=== PATIENT | male | born 1945 | race Caucasian/White ===

== ENCOUNTER 2020-02-08 14:17 | Emergency (ER) | payer MEDICARE, BC ==
[2020-02-08] MEDS ORDERED: Sodium Chloride 0.9% 10 ML Syringe FLUSH PRN (14:50)
--- NOTE | 2020-02-08 15:27 | CR ---
Chest: PA and lateral views of the chest were obtained. Comparison: Prior chest x-ray of 07/21/18. Slight increased density is felt to be present within both lung bases. If patient has infectious symptoms this could represent minimal areas of pneumonia, this otherwise represents atelectasis. Upper lungs are clear. Heart is enlarged. Tortuous thoracic aorta is noted. Scattered disc space narrowing throughout the thoracic spine with endplate spurring is seen. Diaphragms are flattened on the lateral view compatible with emphysematous change. Impression: 1. Mild increased density within both lung bases as described above. 2. Emphysematous change. 3. Mild cardiomegaly. Diagnostic code #3 This report was dictated in MDT
--- NOTE | 2020-02-08 15:36 | EDM.PDOC ---
ED HPI GENERAL MEDICAL PROBLEM - General Chief Complaint: Chest Pain Stated Complaint: CHEST PAIN Time Seen by Provider: 02/08/20 14:50 Source of Information: Reports: Patient History Limitations: Reports: No Limitations - History of Present Illness INITIAL COMMENTS - FREE TEXT/NARRATIVE: Patient is a 74-year-old male who presents with a 3-day history of chest pain. Patient describes the pain as midsternal that radiates to the right chest and left shoulder. He denies any increased shortness of breath associated with this pain. He denies any diaphoresis. He states the pain comes and goes and is worsened by lying flat. When he has an episode of pain he states it can last anywhere from 10 seconds to 45 seconds. It happens intermittently throughout the day. Pain is not currently present, however he does state he feels pressure. He denies any history of GERD, however states he was on omeprazole previously, however he is no longer on that medication. Patient has a past medical history significant for high blood pressure, coronary artery disease, COPD, type 2 diabetes, and blood clots. Chest Pain Score (Numeric/FACES): 7 - Related Data Allergies Allergy/AdvReac Type Severity Reaction Status Date / Time No Known Allergies Allergy Verified 02/08/20 14:32 Home Meds: Home Meds Acetaminophen 325 mg PO Q4H PRN 02/08/20 [History] Albuterol [Proventil HFA] 2 puff INH Q4H PRN 02/08/20 [History] Apixaban [Eliquis] 5 mg PO BID 02/08/20 [History] Budesonide/Formoterol Fumarate [Budesonide-Formoterol 160-4.5] 2 puff INH BID [History] Flunisolide [Nasalide Nasal [place]] 2 spr WYATT DAILY 02/08/20 [History] Folic Acid 1 mg PO DAILY 02/08/20 [History] Furosemide [Lasix] 80 mg PO DAILY 02/08/20 [History] Insulin Glarg,Human.Rec.Analog [Lantus Solostar] 40 units SUBCUT BEDTIME [History] Isosorbide Mononitrate [Isosorbide Mononitrate ER] 60 mg PO DAILY 02/08/20 [ History] Losartan [Cozaar] 100 mg PO DAILY 02/08/20 [History] Montelukast [Singulair] 10 mg PO BEDTIME 02/08/20 [History] Nitroglycerin 0.4 mg SL ASDIRECTED PRN 02/08/20 [History] Omeprazole 20 mg PO DAILY #30 capsule. 02/08/20 [Rx] Simvastatin [Zocor] 40 mg PO BEDTIME 02/08/20 [History] SitaGLIPtin [Januvia] 100 mg PO DAILY 02/08/20 [History] amLODIPine [Norvasc] 10 mg PO DAILY 02/08/20 [History] carvediloL [Carvedilol] 25 mg PO BID 02/08/20 [History] metFORMIN [Glucophage] 1,000 mg PO BID 02/08/20 [History] traZODone HCl [Trazodone HCl] 50 mg PO BEDTIME 02/08/20 [History] Past Medical History HEENT History: Reports: Impaired Vision Social & Family History - Tobacco Use Smoking Status *Q: Never Smoker ED ROS GENERAL - Review of Systems Review Of Systems: Comprehensive ROS is negative, except as noted in HPI. ED EXAM, GENERAL - Physical Exam Exam: See Below Exam Limited By: No Limitations General Appearance: Alert, WD/WN, No Apparent Distress Respiratory/Chest: No Respiratory Distress, Lungs Clear, Normal Breath Sounds, No Accessory Muscle Use, Chest Non-Tender Cardiovascular: Normal Peripheral Pulses, Regular Rate, Rhythm, No Edema, No Gallop, No JVD, No Murmur, No Rub GI/Abdominal: Normal Bowel Sounds, Soft, No Organomegaly, No Distention, No Abnormal Bruit, No Mass, Pelvis Stable, Other (epigastric tenderness) Extremities: Normal Inspection, Normal Range of Motion, Non-Tender, Normal Capillary Refill, No Pedal Edema Neurological: Alert, Oriented, CN II-XII Intact, Normal Cognition, Normal Gait, Normal Reflexes, No Motor/Sensory Deficits Psychiatric: Normal Affect, Normal Mood Skin Exam: Warm, Dry, Intact, Normal Color, No Rash Course - Vital Signs Last Recorded V/S: Last Vital Signs Temp 97.9 F 02/08/20 14:30 Pulse 68 02/08/20 17:00 Resp 16 02/08/20 17:00 BP 152/86 H 02/08/20 17:00 Pulse Ox 97 02/08/20 17:00 - Orders/Labs/Meds Orders: Active Orders 24 hr Category Date Time Status EKG Documentation Completion [RC] STAT Care 02/08/20 14:51 Active Peripheral IV Care [RC] . DIRECTED Care 02/08/20 14:51 Active Peripheral IV Insertion Adult [OM.PC] Stat Oth 02/08/20 14:50 Ordered Labs: Laboratory Tests 02/08/20 02/08/20 02/08/20 Range/Units 15:10 15:10 15:10 WBC 10.60 H (4.23-9.07) K/mm3 RBC 4.73 (4.63-6.08) M/mm3 Hgb 14.9 (13.7-17.5) gm/dl Hct 45.3 (40.1-51.0) % MCV 95.8 H (79.0-92.2) fl MCH 31.5 (25.7-32.2) pg MCHC 32.9 (32.2-35.5) g/dl RDW Std Deviation 47.4 H (35.1-43.9) fL Plt Count 165 (163-337) K/mm3 MPV 11.4 (9.4-12.3) fl Neut % (Auto) 65.7 (34.0-67.9) % Lymph % (Auto) 16.5 L (21.8-53.1) % [place] % (Auto) 11.0 (5.3-12.2) % Eos % (Auto) 5.8 (0.8-7.0) Baso % (Auto) 0.4 (0.1-1.2) % Neut # (Auto) 6.96 H (1.78-5.38) K/mm3 Lymph # (Auto) 1.75 (1.32-3.57) K/mm3 [place] # (Auto) 1.17 H (0.30-0.82) K/mm3 Eos # (Auto) 0.62 H (0.04-0.54) K/mm3 Baso # (Auto) 0.04 (0.01-0.08) K/mm3 Manual Slide Review Abnormal smear D-Dimer, Quantitative 0.24 (0.19-0.50) mg/L Sodium 142 (136-145) mEq/L Potassium 4.1 (3.5-5.1) mEq/L Chloride 106 (98-107) mEq/L Carbon Dioxide 24 (21-32) mEq/L Anion Gap 16.1 H (5-15) BUN 23 H (7-18) mg/dL Creatinine 1.3 (0.7-1.3) mg/dL Est Cr Clr Drug Dosing 52.29 mL/min Estimated GFR (MDRD) 54 (>60) mL/min BUN/Creatinine Ratio 17.7 (14-18) Glucose 169 H (83-115) mg/dL Calcium 9.7 (8.5-10.1) mg/dL Total Bilirubin 0.6 (0.2-1.0) mg/dL AST 34 (15-37) U/L ALT 46 (16-63) U/L Alkaline Phosphatase 101 (46-116) U/L Troponin I 0.048 (0.00-0.056) ng/mL Total Protein 7.8 (6.4-8.2) g/dl Albumin 3.1 L (3.4-5.0) g/dl Globulin 4.7 gm/dL Albumin/Globulin Ratio 0.7 L (1-2) Lipase (73-393) U/L 02/08/20 Range/Units 15:10 WBC (4.23-9.07) K/mm3 RBC (4.63-6.08) M/mm3 Hgb (13.7-17.5) gm/dl Hct (40.1-51.0) % MCV (79.0-92.2) fl MCH (25.7-32.2) pg MCHC (32.2-35.5) g/dl RDW Std Deviation (35.1-43.9) fL Plt Count (163-337) K/mm3 MPV (9.4-12.3) fl Neut % (Auto) (34.0-67.9) % Lymph % (Auto) (21.8-53.1) % [place] % (Auto) (5.3-12.2) % Eos % (Auto) (0.8-7.0) Baso % (Auto) (0.1-1.2) % Neut # (Auto) (1.78-5.38) K/mm3 Lymph # (Auto) (1.32-3.57) K/mm3 [place] # (Auto) (0.30-0.82) K/mm3 Eos # (Auto) (0.04-0.54) K/mm3 Baso # (Auto) (0.01-0.08) K/mm3 Manual Slide Review D-Dimer, Quantitative (0.19-0.50) mg/L Sodium (136-145) mEq/L Potassium (3.5-5.1) mEq/L Chloride (98-107) mEq/L Carbon Dioxide (21-32) mEq/L Anion Gap (5-15) BUN (7-18) mg/dL Creatinine (0.7-1.3) mg/dL Est Cr Clr Drug Dosing mL/min Estimated GFR (MDRD) (>60) mL/min BUN/Creatinine Ratio (14-18) Glucose (83-115) mg/dL Calcium (8.5-10.1) mg/dL Total Bilirubin (0.2-1.0) mg/dL AST (15-37) U/L ALT (16-63) U/L Alkaline Phosphatase (46-116) U/L Troponin I (0.00-0.056) ng/mL Total Protein (6.4-8.2) g/dl Albumin (3.4-5.0) g/dl Globulin gm/dL Albumin/Globulin Ratio (1-2) Lipase 78 (73-393) U/L Meds: Medications Discontinued Medications Generic Name Dose Route Start Last Admin Trade Name Freq PRN Reason Stop Dose Admin Al Hydroxide/Mg Hydroxide 30 0 ml 02/08/20 16:05 02/08/20 16:23 ml/ Lidocaine HCl 15 ml PO 02/08/20 16:06 45 ml ONETIME ONE Administration Sodium Chloride 10 ml 02/08/20 14:50 02/08/20 15:14 Saline Flush FLUSH 10 ml ASDIRECTED PRN Administration Keep Vein Open - Re-Assessments/Exams Free Text/Narrative Re-Assessment/Exam: On exam, patient does have fairly significant epigastric discomfort to palpation. Based on his symptoms and exam, I feel it is likely he is suffering from gastritis with esophageal spasms, however I have ordered a CBC, CMP, troponin, d-dimer, chest x-ray, and EKG to rule out cardiac involvement. If this all comes back normal, we will try using a GI cocktail to see if that improves his symptoms. 02/08/20 16:20 Hematology was significant for a WBC slightly elevated at 10.6, BUN 23, anion gap 16.1. Troponin and d-dimer were found to be negative. EKG was negative for any acute ischemia. Chest x-ray showed atelectasis in the bilateral lung bases as well as emphysematous changes. Patient states that he had a couple episodes of the sharp pains while waiting for results. He continues to have a pressure in the lower mid chest area directly above the epigastrium. We will order a GI cocktail at this time to see if this improves patient's symptoms. 02/08/20 16:58 On re-exam, patient verbalized that his symptoms resolved after the GI cocktail. The pressure above his epigastrium has resolved and he has had no further episodes of sharp pains. I will recommend that he start omeprazole once daily and follow-up with his primary care provider next week. I will send a prescription for omeprazole to her [facility] pharmacy. Discharge instructions as documented. Departure - Departure Time of Disposition: 16:59 Disposition: Home, Self-Care 01 Condition: Good Clinical Impression: Atypical chest pain Prescriptions: Omeprazole 20 mg PO DAILY #30 capsule. Instructions: Nonspecific Chest Pain, Adult, [id number] Referrals: Radha Copeland, AIRPLANE P[employer]OT SUPERVISOR [Primary Care Provider] - Forms: ED Department Discharge Additional Instructions: You were seen in the emergency department today for a 3-day history of intermittent chest discomfort. He work-up included blood work, EKG, and a chest x-ray. Your work-up was found to be overall normal. While in the ER, you did receive a GI cocktail which you state did resolve your symptoms. Based on your exam, work-up findings, and improvement with a GI cocktail, it is likely that you are suffering from a gastritis with esophageal spasms. I would recommend that you start taking omeprazole 20 mg daily. A prescription for this has been sent to [facility] pharmacy. I would also recommend that you follow- up with your primary care provider next week to monitor the symptoms. If you experience any new or worsening symptoms of concern, please do not hesitate to return to the emergency department. Sepsis Event Note - Evaluation Sepsis Screening Result: No Definite Risk - Focused Exam Vital Signs: Vital Signs Temp Pulse Resp BP Pulse Ox 02/08/20 17:00 68 16 152/86 H 97 04/27/20 14:30 97.9 F 69 16 161/98 H 96 Date Exam was Performed: 02/08/20 Time Exam was Performed: 20:37 - My Orders Last 24 Hours: My Active Orders 02/08/20 14:50 Peripheral IV Insertion Adult [OM.PC] Stat 02/08/20 14:51 EKG Documentation Completion [RC] STAT Peripheral IV Care [RC] . DIRECTED - Assessment/Plan Last 24 Hours: My Active Orders 02/08/20 14:50 Peripheral IV Insertion Adult [OM.PC] Stat 02/08/20 14:51 EKG Documentation Completion [RC] STAT Peripheral IV Care [RC] . DIRECTED
[2020-02-08] MEDS ORDERED: Alum Hydrox/Mag Hydrox/Simeth 30 ML, Lidocaine 2% 15 ML PO ONE ×2 (16:05)
[2020-02-08 17:27] VITALS: BP 152/86; PULSE 68
== END 2020-02-08 17:15 | disposition home or self-care (01) ==
LOC: JD.ED 14:17
DX: R07.89 Other chest pain (principal); Z79.01 Long term (current) use of anticoagulants; Z79.899 Other long term (current) drug therapy
CPT/HCPCS: 36415; 71046; 80053; 83690; 84484; 85025; 85379; 93005; 99285; A9270

== ENCOUNTER 2020-05-25 17:16 | Emergency (ER) | payer OTHER, MEDICARE, BC ==
[2020-05-25 17:52] VITALS: BP 160/81; PULSE 59
--- NOTE | 2020-05-25 19:29 | EDM.PDOC ---
ED HPI GENERAL MEDICAL PROBLEM - General Chief Complaint: Lower Extremity Injury/Pain Stated Complaint: RT ANKLE INJURY Time Seen by Provider: 05/25/20 18:19 Source of Information: Reports: Patient, RN Notes Reviewed - History of Present Illness INITIAL COMMENTS - FREE TEXT/NARRATIVE: 74 yr old male fell, twisted and injured R ankle 5 days ago. Continued pain, swelling and now a lot of bruising. Takes elequis. He has had pain with wt bearing. Has been using crutches. No other pain or injury. Right Ankle Pain Score (Numeric/FACES): 10 - Related Data Allergies Allergy/AdvReac Type Severity Reaction Status Date / Time No Known Allergies Allergy Verified 05/25/20 17:50 Home Meds: Home Meds Acetaminophen 325 mg PO Q4H PRN 02/08/20 [History] Albuterol [Proventil HFA] 2 puff INH Q4H PRN 02/08/20 [History] Apixaban [Eliquis] 5 mg PO BID 02/08/20 [History] Budesonide/Formoterol Fumarate [Budesonide-Formoterol 160-4.5] 2 puff INH BID 02/08/20 [History] Flunisolide [Nasalide Nasal [place]] 2 spr WYATT DAILY 02/08/20 [History] Folic Acid 1 mg PO DAILY 02/08/20 [History] Furosemide [Lasix] 80 mg PO DAILY 02/08/20 [History] Insulin Glarg,Human.Rec.Analog [Lantus Solostar] 40 units SUBCUT BEDTIME 02/08/20 [History] Isosorbide Mononitrate [Isosorbide Mononitrate ER] 60 mg PO DAILY 02/08/20 [H istory] Losartan [Cozaar] 100 mg PO DAILY 02/08/20 [History] Montelukast [Singulair] 10 mg PO BEDTIME 02/08/20 [History] Nitroglycerin 0.4 mg SL ASDIRECTED PRN 02/08/20 [History] Omeprazole 20 mg PO DAILY #30 capsule. 02/08/20 [Rx] Simvastatin [Zocor] 40 mg PO BEDTIME 02/08/20 [History] SitaGLIPtin [Januvia] 100 mg PO DAILY 02/08/20 [History] amLODIPine [Norvasc] 10 mg PO DAILY 02/08/20 [History] carvediloL [Carvedilol] 25 mg PO BID 02/08/20 [History] metFORMIN [Glucophage] 1,000 mg PO BID 02/08/20 [History] traZODone HCl [Trazodone HCl] 50 mg PO BEDTIME 02/08/20 [History] Acetaminophen/HYDROcodone [[place] 325-5 MG] 1 tab PO Q6H PRN #14 tablet 05/25/20 [Rx] Past Medical History HEENT History: Reports: Impaired Vision Cardiovascular History: Reports: Blood Clots/VTE/DVT, High Cholesterol, Hypertension Respiratory History: Reports: PE Gastrointestinal History: Reports: None Genitourinary History: Reports: None Musculoskeletal History: Reports: Arthritis Neurological History: Reports: None Psychiatric History: Reports: None Endocrine/Metabolic History: Reports: Diabetes, Type II, Obesity/BMI 30+ Hematologic History: Reports: Anticoagulation Therapy Immunologic History: Reports: None Oncologic (Cancer) History: Reports: None Dermatologic History: Reports: None - Infectious Disease History Infectious Disease History: Reports: None - Past Surgical History HEENT Surgical History: Reports: Other (See Below) Other HEENT Surgeries/Procedures: Surgery to the nose. Cardiovascular Surgical History: Reports: Other (See Below) Other Cardiovascular Surgeries/Procedures: 3 Stents Musculoskeletal Surgical History: Reports: Other (See Below) Other Musculoskeletal Surgeries/Procedures:: Toe Surgery Social & Family History - Tobacco Use Smoking Status *Q: Never Smoker - Caffeine Use Caffeine Use: Reports: Coffee, Soda - Recreational Drug Use Recreational Drug Use: No Review of Systems - Review of Systems Review Of Systems: See Below Constitutional: Denies: Chills, Diaphoresis, Fever Eyes: Reports: No Symptoms Mouth/Throat: Reports: No Symptoms Respiratory: Denies: Shortness of Breath, Wheezing, Pleuritic Chest Pain Cardiovascular: Denies: Chest Pain GI/Abdominal: Denies: Abdominal Pain, Vomiting Musculoskeletal: Reports: Joint Pain (R ankle) Skin: Reports: Bruising (severe bruising and echymosis R lower leg, foot and ankle) ED EXAM, GENERAL - Physical Exam Exam: See Below General Appearance: Alert, No Apparent Distress Head: Atraumatic. No: Facial Swelling Neck: Supple Respiratory/Chest: No Respiratory Distress, Lungs Clear, Normal Breath Sounds. No: Rhonchi, Wheezing Cardiovascular: Regular Rate, Rhythm GI/Abdominal: Soft, Non-Tender Extremities: Pedal Edema (there is swelling, diffuse echymosis R lower leg, R ankle and R foot), Joint Swelling (R ankle, tenderness R lateral ankle), Other Neurological: Alert, Oriented, No Motor/Sensory Deficits Skin Exam: Warm, Dry, Ecchymosis (as described RLE) Course - Vital Signs Last Recorded V/S: Last Vital Signs Temp 97.6 F 05/25/20 17:47 Pulse 59 L 05/25/20 17:47 Resp 16 05/25/20 17:47 BP 160/81 H 05/25/20 17:47 Pulse Ox 96 05/25/20 17:47 - Re-Assessments/Exams Free Text/Narrative Re-Assessment/Exam: 05/28/20 14:32 X rays show what looks like nondisplaced fx distal fibula. Have place Orthoglass splint. discharge instr. as documented. Departure - Departure Time of Disposition: 19:25 Disposition: Home, Self-Care 01 Condition: Fair Clinical Impression: Fall Qualifiers: Encounter type: sequela Qualified Code(s): W19.XXXS - Unspecified fall, sequela Fractured fibula Qualifiers: Encounter type: initial encounter Fibula location: lateral malleolus Fracture type: closed - Discharge Information Prescriptions: Acetaminophen/HYDROcodone [[place] 325-5 MG] 1 tab PO Q6H PRN #14 tablet PRN Reason: Pain Instructions: Nondisplaced Fibular Ankle Fracture Treated With Immobilization, Adult, Cast or Splint Care, Adult Referrals: Radha Copeland DENTURE FINISHER [Primary Care Provider] - Forms: ED Department Discharge Additional Instructions: Fiberglass splint. Keep splint dry. Continue with intermitent ice packs and do try elevate foot and ankle as much as possible to help get the swelling down. Tylenol 2 to 3 times daily for mild to moderate pain or hydrocodone 1/2 tablet q 6 to 8 hr if needed for severe pain. Prescription has been sent to [facility] at the [employer] grocery store. Do not drive when taking hydrocodone. See Dr Powers or Brittani at his office this Saturday or early next week. Call [phone] in AM for appointment. Continue to use crutches. Try keep non weight bearing as best you can. Sepsis Event Note (ED) - Evaluation Sepsis Screening Result: No Definite Risk
--- NOTE | 2020-05-25 19:45 | CR ---
Right tibia and fibula: AP and lateral views of the right tibia and fibula were obtained. Calcification is seen within the medial upper calf most likely representing phlebolith within a varicosity. Mild arterial calcification is seen. Plantar spur is noted off the calcaneus. Lazaro of bone is noted off the medial malleolus which is believed to represent old cortical avulsion injury. Osteopenia is present. No definite fracture or other abnormality is appreciated. Impression: 1. Findings as noted above. 2. Nothing acute is definitely appreciated on right tibia and fibula exam. Diagnostic code #2 This report was dictated in MDT
--- NOTE | 2020-05-26 14:18 | CR ---
Right ankle: 4 views of the right ankle were obtained. Comparison: Previous right tibia and fibula study of 05/25/20. Findings: Fracture believed to be present within the distal tip of the fibula which appears nondisplaced. Old fracture calcifications are seen along the medial malleolus. Plantar spur is noted. Vascular calcification is seen. Impression: 1. Nondisplaced distal fibular tip fracture is felt to be present. This appears to be fairly acute. This was likely present on prior tibia and fibula study but not seen as well on the prior study. 2. Old injury as noted above and other findings. Diagnostic code #3 This report was dictated in MDT
== END 2020-05-25 19:35 | disposition home or self-care (01) ==
LOC: JD.ED 17:16
DX: S82.64XA Nondisplaced fracture of lateral malleolus of right fibula, initial encounter for closed fracture (principal); S80.11XA Contusion of right lower leg, initial encounter; S90.31XA Contusion of right foot, initial encounter; I10 Essential (primary) hypertension; E78.00 Pure hypercholesterolemia, unspecified; E11.9 Type 2 diabetes mellitus without complications; E66.9 Obesity, unspecified; Z79.4 Long term (current) use of insulin; Z68.30 Body mass index [BMI] 30.0-30.9, adult; Z79.899 Other long term (current) drug therapy; X50.1XXA Overexertion from prolonged static or awkward postures, initial encounter
CPT/HCPCS: 29515; 73590-26-RT; 73590-RT; 73610-26-RT; 73610-RT; 99283; 99283-25

== ENCOUNTER 2021-07-04 15:19 | Inpatient (IN) | payer MEDICARE, BC ==
[2021-07-04] MEDS ORDERED: Morphine 2 MG/ML SYRINGE IVPUSH PRN (16:08)
[2021-07-04] MEDS ORDERED: Promethazine 12.5 MG in Sodium Chloride 0.9% 50 ML IV PRN (16:08)
[2021-07-04] MEDS ORDERED: Albuterol/Ipratropium 3.0-0.5 MG/3 ML Neb Soln NEB PRN (16:08)
[2021-07-04] MEDS ORDERED: Enoxaparin 40 MG/0.4 ML Syringe SUBCUT SCH (16:15)
[2021-07-04] MEDS ORDERED: hydrALAZINE 20 MG/ML SDV IVPUSH PRN (16:21)
[2021-07-04] MEDS ORDERED: REMDESIVIR 200 MG in Sodium Chloride 0.9% 250 ML IV ONE (16:30)
--- NOTE | 2021-07-04 16:35 | PCM.HP.2 ---
H&P History of Present Illness - General Date of Service: 07/04/21 Admit Problem/Dx: Admission Diagnosis/Problem Admission Diagnosis/Problem Hypoxia Source of Information: Patient - History of Present Illness Initial Comments - Free Text/Narative: Patient is a 75-year-old male with a past medical history of COPD, atrial fibrillation, diabetes type 2, CHF, and hypertension who was directly admitted to the hospital from her PCP office due to oxygen desaturation. Patient possibly had a positive Covid test on June 20, 2021. At that time patient had a worsening shortness of breath for which he visited his doctor. He was given prednisone 5 days. Patient normally is on 2 L at night. But over the past 1 weeks he has been having coughing with phlegm and more worsening shortness of breath. Patient visited's office today in office where she was found to have low oxygen desaturation. Chest x-ray was performed that showing bilateral pneumonia. Patient has been on Eliquis for atrial fibrillation. - Related Data Allergies/Adverse Reactions: Allergies Allergy/AdvReac Type Severity Reaction Status Date / Time No Known Allergies Allergy Verified 05/25/20 17:50 Home Medications: Home Meds Acetaminophen 325 mg PO Q4H PRN 02/08/20 [History] Albuterol [Proventil HFA] 2 puff INH Q4H PRN 02/08/20 [History] Apixaban [Eliquis] 5 mg PO BID 02/08/20 [History] Budesonide/Formoterol Fumarate [Budesonide-Formoterol 160-4.5] 2 puff INH BID 02/08/20 [History] Flunisolide [Nasalide Nasal [place]] 2 spr WYATT DAILY 02/08/20 [History] Folic Acid 1 mg PO DAILY 02/08/20 [History] Furosemide [Lasix] 80 mg PO DAILY 02/08/20 [History] Insulin Glarg,Human.Rec.Analog [Lantus Solostar] 40 units SUBCUT BEDTIME 02/08/20 [History] Isosorbide Mononitrate [Isosorbide Mononitrate ER] 60 mg PO DAILY 02/08/20 [History] Losartan [Cozaar] 100 mg PO DAILY 02/08/20 [History] Montelukast [Singulair] 10 mg PO BEDTIME 02/08/20 [History] Nitroglycerin 0.4 mg SL ASDIRECTED PRN 02/08/20 [History] Omeprazole 20 mg PO DAILY #30 capsule.dr 02/08/20 [Rx] Simvastatin [Zocor] 40 mg PO BEDTIME 02/08/20 [History] SitaGLIPtin [Januvia] 100 mg PO DAILY 02/08/20 [History] amLODIPine [Norvasc] 10 mg PO DAILY 02/08/20 [History] carvediloL [Carvedilol] 25 mg PO BID 02/08/20 [History] metFORMIN [Glucophage] 1,000 mg PO BID 02/08/20 [History] traZODone HCl [Trazodone HCl] 50 mg PO BEDTIME 02/08/20 [History] Acetaminophen/HYDROcodone [[place] 325-5 MG] 1 tab PO Q6H PRN #14 tablet 05/25/20 [Rx] Past Medical History HEENT History: Reports: Impaired Vision Cardiovascular History: Reports: Blood Clots/VTE/DVT, High Cholesterol, Hypertension Respiratory History: Reports: PE Gastrointestinal History: Reports: None Genitourinary History: Reports: None Musculoskeletal History: Reports: Arthritis Neurological History: Reports: None Psychiatric History: Reports: None Endocrine/Metabolic History: Reports: Diabetes, Type II, Obesity/BMI 30+ Hematologic History: Reports: Anticoagulation Therapy Immunologic History: Reports: None Oncologic (Cancer) History: Reports: None Dermatologic History: Reports: None - Infectious Disease History Infectious Disease History: Reports: None - Past Surgical History HEENT Surgical History: Reports: Other (See Below) Other HEENT Surgeries/Procedures: Surgery to the nose. Cardiovascular Surgical History: Reports: Other (See Below) Other Cardiovascular Surgeries/Procedures: 3 Stents Musculoskeletal Surgical History: Reports: Other (See Below) Other Musculoskeletal Surgeries/Procedures:: Toe Surgery Social & Family History - Family History Family Medical History: No Pertinent Family History (Denies genetic diseases in family) - Caffeine Use Caffeine Use: Reports: Coffee, Soda H&P Review of Systems - Review of Systems: Review Of Systems: See Below General: Reports: Weakness, Fatigue HEENT: Reports: No Symptoms Pulmonary: Reports: Shortness of Breath, Cough, Sputum Cardiovascular: Reports: No Symptoms Gastrointestinal: Reports: No Symptoms Genitourinary: Reports: No Symptoms Musculoskeletal: Reports: No Symptoms Skin: Reports: No Symptoms Psychiatric: Reports: No Symptoms Neurological: Reports: No Symptoms Hematologic/Lymphatic: Reports: No Symptoms Immunologic: Reports: No Symptoms Exam - Exam Exam: See Below - Vital Signs Vital Signs: Last Vital Signs Temp 36.8 C 07/04/21 16:21 Pulse 71 07/04/21 16:21 Resp 12 07/04/21 16:21 BP 113/60 07/04/21 16:21 Pulse Ox 90 L 07/04/21 16:21 - Exam General: Alert, Oriented, Cooperative, Mild Distress (Due to shortness of breath) HEENT: Conjunctiva Clear, EOMI, Pupils Equal, Pupils Reactive Neck: Supple, Full Range of Motion. No: Lymphadenopathy, JVD Lungs: Normal Respiratory Effort, Decreased Breath Sounds, Crackles, Rhonchi Cardiovascular: Irregular Rhythm GI/Abdominal Exam: Normal Bowel Sounds, Soft, Non-Tender, No Organomegaly Extremities: Normal Inspection, Non-Tender, No Pedal Edema Skin: Warm, Dry, Intact Neurological: Strength Equal Bilateral, Sensation Intact Neuro Extensive - Mental Status: Alert, Oriented x3, Normal Mood/Affect Sepsis Event Note - Evaluation Sepsis Screening Result: No Definite Risk - Focused Exam Vital Signs: Vital Signs Temp Pulse Resp BP Pulse Ox 07/04/21 16:21 36.8 C 71 12 113/60 90 L 07/04/21 16:08 72 90 L 07/04/21 16:02 75 89 L 07/04/21 15:19 70 88 L Problem List Initiated/Reviewed/Updated: Yes Orders Last 24hrs: Active Orders 24 hr Category Date Time Status Admission Status [Patient Status] [ADT] Routine ADT 07/04/21 15:38 Active Bedrest Bedside Commode [RC] ASDIRECTED Care 07/04/21 16:08 Ordered Cardiac Monitoring [RC] CONTINUOUS Care 07/04/21 16:09 Ordered EKG Documentation Completion [RC] ROUTINE Care 07/04/21 16:08 Ordered Intake and Output [RC] QSHIFT Care 07/04/21 16:09 Ordered Oxygen Therapy [RC] PRN Care 07/04/21 16:09 Ordered Pulse Oximetry [RC] CONTINUOUS Care 07/04/21 16:09 Ordered RT Aerosol Therapy [RC] ASDIRECTED Care 07/04/21 16:11 Ordered RT Post Treatment Assessment [RC] Click to Edit Care 07/04/21 16:27 Ordered RT Pre-Treatment Assessment [RC] Click to Edit Care 07/04/21 16:27 Ordered VTE/DVT Education [RC] PER UNIT ROUTINE Care 07/04/21 16:09 Ordered Vital Signs [RC] Q4H Care 07/04/21 16:09 Ordered Consistent Carbohydrate Diet [DIET] Diet 07/04/21 Dinner Ordered BLOOD CULTURE [MREF] Stat Lab 07/04/21 16:14 Ordered BLOOD CULTURE [MREF] Stat Lab 07/04/21 16:14 Ordered C-REACTIVE PROTEIN [CHEM] DAILY Lab 07/05/21 05:00 Ordered C-REACTIVE PROTEIN [CHEM] DAILY Lab 07/06/21 05:00 Ordered C-REACTIVE PROTEIN [CHEM] DAILY Lab 07/07/21 05:00 Ordered C-REACTIVE PROTEIN [CHEM] DAILY Lab 07/08/21 05:00 Ordered C-REACTIVE PROTEIN [CHEM] DAILY Lab 07/09/21 05:00 Ordered CBC WITH AUTO DIFF [HEME] DAILY Lab 07/05/21 05:00 Ordered CBC WITH AUTO DIFF [HEME] DAILY Lab 07/06/21 05:00 Ordered CBC WITH AUTO DIFF [HEME] DAILY Lab 07/07/21 05:00 Ordered CBC WITH AUTO DIFF [HEME] DAILY Lab 07/08/21 05:00 Ordered CBC WITH AUTO DIFF [HEME] DAILY Lab 07/09/21 05:00 Ordered COMPREHENSIVE METABOLIC PN,CMP [CHEM] DAILY Lab 07/05/21 05:00 Ordered COMPREHENSIVE METABOLIC PN,CMP [CHEM] DAILY Lab 07/06/21 05:00 Ordered COMPREHENSIVE METABOLIC PN,CMP [CHEM] DAILY Lab 07/07/21 05:00 Ordered COMPREHENSIVE METABOLIC PN,CMP [CHEM] DAILY Lab 07/08/21 05:00 Ordered COMPREHENSIVE METABOLIC PN,CMP [CHEM] DAILY Lab 07/09/21 05:00 Ordered D-DIMER QUANTITATIVE [COAG] Routine Lab 07/04/21 16:22 Ordered INR,PT,PROTHROMBIN TIME [COAG] Routine Lab 07/04/21 16:08 Ordered MAGNESIUM [CHEM] Routine Lab 07/04/21 16:08 Ordered PHOSPHORUS [CHEM] Routine Lab 07/04/21 16:08 Ordered PRO B-TYPE NATRIUR PEPT,BNPPRO [CHEM] Routine Lab 07/04/21 16:22 Ordered PTT,PARTIAL THROMBOPLSTIN TIME [COAG] Routine Lab 07/04/21 16:08 Ordered RESPIRATORY CULT [MREF] Stat Lab 07/04/21 16:08 Ordered TROPONIN I [CHEM] Routine Lab 07/04/21 16:08 Ordered UA W/MICROSCOPIC [URIN] Routine Lab 07/04/21 16:08 Ordered Acetaminophen [TylenoL] Med 07/04/21 16:08 Ordered 650 mg PO Q6H PRN Albuterol [Proventil HFA] Med 07/04/21 16:23 Ordered 2 puff INH Q4H PRN Albuterol/Ipratropium [DuoNeb 3.0-0.5 MG/3 ML] Med 07/04/21 16:08 Ordered 3 ml NEB Q4H PRN Apixaban [Eliquis] Med 07/04/21 16:30 Ordered 5 mg PO BID Azithromycin [Zithromax] Med 07/05/21 09:00 Ordered 500 mg PO DAILY Budesonide/Formoterol Fumarate Med 07/04/21 21:00 Ordered 2 puff INH BID Cholecalciferol (Vitamin D3) [Vitamin D3] Med 07/05/21 09:00 Ordered 25 mcg PO DAILY Enoxaparin [Lovenox] Med 07/04/21 16:15 Stop Req 40 mg SUBCUT DAILY Flunisolide [Nasalide Nasal [place]] Med 07/05/21 09:00 Ordered 2 spr WYATT DAILY Folic Acid Med 07/05/21 09:00 Ordered 1 mg PO DAILY Furosemide [Lasix] Med 07/05/21 09:00 Ordered 80 mg PO DAILY Insulin Glarg,Human.Rec.Analog Med 07/04/21 21:00 Ordered 40 units SUBCUT BEDTIME Insulin Lispro [HumaLOG] Med 07/04/21 17:00 Ordered See Protocol SUBCUT QIDACANDBED Isosorbide Mononitrate [Imdur] Med 07/05/21 09:00 Ordered 60 mg PO DAILY Melatonin Med 07/04/21 21:00 Ordered 3 mg PO BEDTIME Montelukast [Singulair] Med 07/04/21 21:00 Ordered 10 mg PO BEDTIME Morphine Med 07/04/21 16:08 Ordered 2 mg IVPUSH Q4H PRN Omeprazole Med 07/05/21 09:00 Ordered 20 mg PO DAILY Promethazine [Phenergan] 12.5 mg Med 07/04/21 16:08 Ordered Sodium Chloride 0.9% [Normal Saline] 50 ml IV Q6H Remdesivir 100 mg Med 07/04/21 16:30 Ordered Sodium Chloride 0.9% [Normal Saline] 100 ml IV Q24H Remdesivir 200 mg Med 07/04/21 16:17 Ordered Sodium Chloride 0.9% [Normal Saline] 250 ml IV ONETIME Simvastatin [Zocor] Med 07/04/21 21:00 Ordered 40 mg PO BEDTIME SitaGLIPtin Med 07/05/21 09:00 Ordered 100 mg PO DAILY Zinc Sulfate [Zincate] Med 07/05/21 09:00 Ordered 220 mg PO DAILY amLODIPine [Norvasc] Med 07/05/21 09:00 Ordered 10 mg PO DAILY cefTRIAXone [Rocephin] 2 gm Med 07/04/21 16:30 Ordered Sodium Chloride 0.9% [Normal Saline] 100 ml IV Q24H dexAMETHasone Med 07/05/21 09:00 Ordered 6 mg PO DAILY guaiFENesin [Robitussin] Med 07/04/21 16:16 Ordered 200 mg PO Q6H PRN hydrALAZINE [Apresoline] Med 07/04/21 16:21 Ordered 10 mg IVPUSH Q4H PRN oxyCODONE Med 07/04/21 16:08 Ordered 5 mg PO Q6H PRN traZODone Med 07/04/21 21:00 Ordered 50 mg PO BEDTIME Blood Culture x2 Reflex Set [OM.PC] Stat Oth 07/04/21 16:08 Ordered Resuscitation Status Routine Resus Stat 07/04/21 16:08 Ordered Medication Orders Acetaminophen (Acetaminophen 325 Mg Tab) 650 mg PO Q6H PRN PRN Reason: Pain (Mild 1-3)/fever Albuterol (Albuterol 6.7 Gm Inhaler) gm INH Q4H PRN PRN Reason: Shortness of Breath Albuterol/Ipratropium (Albuterol/Ipratropium 3.0-0.5 Mg/3 Ml Neb Soln) 3 ml NEB Q4H PRN PRN Reason: Shortness Of Breath/wheezing Amlodipine Besylate (Amlodipine 5 Mg Tab) 10 mg PO DAILY [facility] Apixaban (Apixaban 5 Mg Tab) 5 mg PO BID [facility] Azithromycin (Azithromycin 250 Mg Tab) 500 mg PO DAILY [facility] Cholecalciferol (Cholecalciferol (Vitamin D3) 25 Mcg Tab) 25 mcg PO DAILY [facility] Dexamethasone (Dexamethasone 4 Mg Tab) 6 mg PO DAILY [facility] Enoxaparin Sodium (Enoxaparin 40 Mg/0.4 Ml Syringe) 40 mg SUBCUT DAILY [facility] Folic Acid (Folic Acid 1 Mg Tab) 1 mg PO DAILY [facility] Furosemide (Furosemide 20 Mg Tab) 80 mg PO DAILY [facility] Guaifenesin (Guaifenesin 100 Mg/5 Ml Soln 10 Ml Ud Cup) 200 mg PO Q6H PRN PRN Reason: Cough Hydralazine HCl (Hydralazine 20 Mg/Ml Sdv) 10 mg IVPUSH Q4H PRN PRN Reason: Hypertension Promethazine HCl 12.5 mg/ (Sodium Chloride) 50.5 mls @ 100 mls/hr IV Q6H PRN PRN Reason: Nausea/Vomiting Remdesivir 200 mg/ Sodium (Chloride) 250 mls @ 250 mls/hr IV ONETIME ONE Stop: 07/04/21 17:29 Remdesivir 100 mg/ Sodium (Chloride) 100 mls @ 100 mls/hr IV Q24H [facility] Stop: 07/08/21 17:29 Ceftriaxone Sodium 2 gm/ (Sodium Chloride) 100 mls @ 200 mls/hr IV Q24H [facility] Isosorbide Mononitrate (Isosorbide Mononitrate 30 Mg Tab.Er) 60 mg PO DAILY [facility] Melatonin (Melatonin 3 Mg Tab) 3 mg PO BEDTIME [facility] Montelukast Sodium (Montelukast 10 Mg Tab) 10 mg PO BEDTIME [facility] Morphine Sulfate (Morphine 2 Mg/Ml Syringe) 2 mg IVPUSH Q4H PRN PRN Reason: Pain (severe 7-10) Stop: 07/05/21 16:10 Non-Formulary Medication (Budesonide/Formoterol Fumarate) 2 puff INH BID [facility] Non-Formulary Medication (Flunisolide [Nasalide Nasal [place]]) 2 spr [place]ATT DAILY [facility] Non-Formulary Medication (Insulin Glarg,Human.Rec.Analog) 40 units SUBCUT BEDTIME [facility] Non-Formulary Medication (Omeprazole) 20 mg PO DAILY [facility] Non-Formulary Medication (Simvastatin [Zocor]) 40 mg PO BEDTIME [facility] Non-Formulary Medication (Sitagliptin) 100 mg PO DAILY [facility] Oxycodone HCl (Oxycodone 5 Mg Tab) 5 mg PO Q6H PRN PRN Reason: Pain (moderate 4-6) Trazodone HCl (Trazodone 50 Mg Tab) 50 mg PO BEDTIME [facility] Zinc Sulfate (Zinc Sulfate 220 Mg Cap) 220 mg PO DAILY [facility] Assessment/Plan Comment:: Patient is a 75-year-old male with a past medical history of COPD, atrial fibrillation, diabetes type 2, CHF, and hypertension who was directly admitted to the hospital from her PCP office due to oxygen desaturation. Acute on chronic hypoxic respiratory failure Etiologies include COPD, CHF, pneumonia Patient is on home oxygen 2 L at night only Pulse ox Oxygen therapy, high flow/BiPAP as needed to keep oxygen saturation greater than 88-90% Covid 19 pneumonia X-ray showed bilateral pneumonia in the PCP office Blood culture Sputum culture Ceftriaxone and azithromycin 5-day course of remdesivir 10-day course of dexamethasone Continue Eliquis 5 mg twice daily Inhalers Repeat CBC, CMP, CRP in morning COPD Inhalers CHF Unknown type BNP Troponin Continue Home medications Lasix 80 mg daily Magnesium Intake and output Atrial fibrillaiton Heart rate controlled Carvedilol 25 mg twice daily is on hold Initiated metoprolol 12.5 mg twice daily Metoprolol 2.5 mg IV push as needed Continue Eliquis 5 mg twice daily Diabetes type 2 Diabetic diet Continue Januvia. Metformin is on hold Continue lantus 40units daily Insulin sliding scale Adjust insulin based on sugar levels Hypertension Continue amlodipine 10mg daily, losartan 100mg daily, imdur 60mg daily Added metoprolol 12.5 mg twice daily Carvedilol 25mg bid is on hold Hydralazine as needed DVT prophylaxis: Eliquis CODE STATUS: Full Disposition: Greater than 2 midnights - Mortality Measure Prognosis:: Poor
[2021-07-04] MEDS: guaiFENesin 100 MG/5 ML Soln 10 ML UD Cup PO PRN (18:06)
[2021-07-04] MEDS: Apixaban 5 MG Tab PO SCH ×2 (18:08→20:58)
[2021-07-04] MEDS: Metoprolol Tartrate 25 MG Tab PO SCH (18:08)
[2021-07-04] MEDS: Insulin Lispro 100 UNIT/ML 10 ML Vial SUBCUT SCH ×2 (18:51→21:25)
[2021-07-04] MEDS: cefTRIAXone 2 GM in Sodium Chloride 0.9% 100 ML IV SCH (20:01)
[2021-07-04] MEDS: Formoterol/Mometasone 200-5 MCG 8.8 GM Inhaler IH SCH (20:44)
[2021-07-04] MEDS: Montelukast 10 MG Tab PO SCH (20:57)
[2021-07-04] MEDS: Acetaminophen 325 MG Tab PO PRN (20:57)
[2021-07-04] MEDS: Simvastatin 40 MG Tab PO SCH (20:57)
[2021-07-04] MEDS: traZODone 50 MG Tab PO SCH (20:57)
[2021-07-04] MEDS: Melatonin 3 MG Tab PO SCH (20:58)
[2021-07-04] MEDS ORDERED: Insulin Glarg,Human.Rec.Analog 100 Unit/ML SUBCUT SCH (21:00)
[2021-07-05] MEDS: guaiFENesin 100 MG/5 ML Soln 10 ML UD Cup PO PRN (00:10)
[2021-07-05] MEDS: Pantoprazole 40 MG Tab.CR PO SCH (06:20)
[2021-07-05] MEDS: Acetaminophen 325 MG Tab PO PRN ×2 (06:20→20:11)
[2021-07-05] MEDS: Metoprolol Tartrate 25 MG Tab PO SCH ×2 (06:20→16:41)
[2021-07-05] MEDS: Insulin Lispro 100 UNIT/ML 10 ML Vial SUBCUT SCH ×4 (06:26→21:03)
[2021-07-05] MEDS: Fluticasone Propionate Nasal Spray 16 GM Bottle NAS SCH (08:45)
[2021-07-05] MEDS: Zinc Sulfate 220 MG Cap PO SCH (08:46)
[2021-07-05] MEDS: Cholecalciferol (Vitamin D3) 25 MCG Tab PO SCH (08:46)
[2021-07-05] MEDS: Dexamethasone 4 MG Tab PO SCH (08:46)
[2021-07-05] MEDS: Azithromycin 250 MG Tab PO SCH (08:46)
[2021-07-05] MEDS: Folic Acid 1 MG Tab PO SCH (08:47)
[2021-07-05] MEDS: Isosorbide Mononitrate 60 MG Tab.ER PO SCH (08:47)
[2021-07-05] MEDS: Apixaban 5 MG Tab PO SCH ×2 (08:47→20:11)
[2021-07-05] MEDS ORDERED: amLODIPine 10 MG Tab PO SCH (09:00)
[2021-07-05] MEDS ORDERED: Furosemide 80 MG Tab PO SCH (09:00)
[2021-07-05] MEDS: Formoterol/Mometasone 200-5 MCG 8.8 GM Inhaler IH SCH ×2 (09:24→20:16)
--- NOTE | 2021-07-05 13:52 | PCM.PN ---
- General Info Date of Service: 07/05/21 Admission Dx/Problem (Free Text): Admission Diagnosis/Problem Admission Diagnosis/Problem Hypoxia Subjective Update: Patient is a 75-year-old male with a past medical history of COPD, atrial fibrillation, diabetes type 2, CHF, and hypertension who was directly admitted to the hospital from her PCP office due to oxygen desaturation. Patient possibly had a positive Covid test on June 20, 2021. Patient is a feeling better. Denies fever, chills, nausea, vomiting, or diarrhea. He eats all 3 to 4 L today Platelets 1 CRP 23.3 Patient had one episode of hypoglycemia 68 - Review of Systems Systems Review Comment:: General: Reports: Weakness, Fatigue HEENT: Reports: No Symptoms Pulmonary: Reports: Shortness of Breath, Cough, Sputum Cardiovascular: Reports: No Symptoms Gastrointestinal: Reports: No Symptoms Genitourinary: Reports: No Symptoms Musculoskeletal: Reports: No Symptoms Skin: Reports: No Symptoms Psychiatric: Reports: No Symptoms Neurological: Reports: No Symptoms Hematologic/Lymphatic: Reports: No Symptoms Immunologic: Reports: No Symptoms - Patient Data Vitals - Most Recent: Last Vital Signs Temp 36.8 C 07/05/21 10:56 Pulse 77 07/05/21 10:56 Resp 20 07/05/21 10:56 BP 95/52 L 07/05/21 10:56 Pulse Ox 88 L 07/05/21 10:56 Weight - Most Recent: 88.723 kg I&O - Last 24 Hours: Intake & Output 07/04/21 07/05/21 07/05/21 22:59 06:59 14:59 Intake Total 170 1280 Output Total 1000 Balance 170 280 Lab Results Last 24 Hours: Laboratory Results - last 24 hr 07/04/21 07/04/21 07/04/21 Range/Units 13:39 16:55 16:55 WBC (4.23-9.07) K/mm3 RBC (4.63-6.08) M/mm3 Hgb (13.7-17.5) gm/dl Hct (40.1-51.0) % MCV (79.0-92.2) fl MCH (25.7-32.2) pg MCHC (32.2-35.5) g/dl RDW Std Deviation (35.1-43.9) fL Plt Count (163-337) K/mm3 MPV (9.4-12.3) fl Neut % (Auto) (34.0-67.9) % Lymph % (Auto) (21.8-53.1) % [place] % (Auto) (5.3-12.2) % Eos % (Auto) (0.8-7.0) Baso % (Auto) (0.1-1.2) % Neut # (Auto) (1.78-5.38) K/mm3 Lymph # (Auto) (1.32-3.57) K/mm3 [place] # (Auto) (0.30-0.82) K/mm3 Eos # (Auto) (0.04-0.54) K/mm3 Baso # (Auto) (0.01-0.08) K/mm3 PT 11.3 (9.7-12.0) SECONDS INR 1.02 APTT 32.1 H (21.7-31.4) SECONDS D-Dimer, Quantitative 0.32 (0.19-0.50) mg/L Sodium (136-145) mEq/L Potassium (3.5-5.1) mEq/L Chloride (98-107) mEq/L Carbon Dioxide (21-32) mEq/L Anion Gap (5-15) BUN (7-18) mg/dL Creatinine (0.7-1.3) mg/dL Est Cr Clr Drug Dosing mL/min Estimated GFR (MDRD) (>60) mL/min BUN/Creatinine Ratio (14-18) Glucose (70-99) mg/dL POC Glucose (70-99) mg/dL Calcium (8.5-10.1) mg/dL Phosphorus 4.3 (2.6-4.7) mg/dL Magnesium 2.0 (1.8-2.4) mg/dL Total Bilirubin (0.2-1.0) mg/dL AST (15-37) U/L ALT (16-63) U/L Alkaline Phosphatase (46-116) U/L Troponin I < 0.017 (0.00-0.056) ng/mL C-Reactive Protein (<1.0) mg/dL NT-Pro-B Natriuret Pep (0-450) pg/mL Total Protein (6.4-8.2) g/dl Albumin (3.4-5.0) g/dl Globulin gm/dL Albumin/Globulin Ratio (1-2) Urine Color (Yellow) Urine Appearance (Clear) Urine pH (5.0-8.0) Ur Specific [place] (1.005-1.030) Urine Protein (Negative) Urine Glucose (UA) (Negative) Urine Ketones (Negative) Urine Occult Blood (Negative) Urine Nitrite (Negative) Urine Bilirubin (Negative) Urine Urobilinogen (0.2-1.0) Ur Leukocyte Esterase (Negative) Urine RBC (0-5) /hpf Urine WBC (0-5) /hpf Ur Squamous Epith Cells (0-5) /hpf Urine Bacteria (FEW) /hpf Urine Mucus (FEW) /hpf 07/04/21 07/04/21 07/04/21 Range/Units 16:55 18:18 20:44 WBC (4.23-9.07) K/mm3 RBC (4.63-6.08) M/mm3 Hgb (13.7-17.5) gm/dl Hct (40.1-51.0) % MCV (79.0-92.2) fl MCH (25.7-32.2) pg MCHC (32.2-35.5) g/dl RDW Std Deviation (35.1-43.9) fL Plt Count (163-337) K/mm3 MPV (9.4-12.3) fl Neut % (Auto) (34.0-67.9) % Lymph % (Auto) (21.8-53.1) % [place] % (Auto) (5.3-12.2) % Eos % (Auto) (0.8-7.0) Baso % (Auto) (0.1-1.2) % Neut # (Auto) (1.78-5.38) K/mm3 Lymph # (Auto) (1.32-3.57) K/mm3 [place] # (Auto) (0.30-0.82) K/mm3 Eos # (Auto) (0.04-0.54) K/mm3 Baso # (Auto) (0.01-0.08) K/mm3 PT (9.7-12.0) SECONDS INR APTT (21.7-31.4) SECONDS D-Dimer, Quantitative (0.19-0.50) mg/L Sodium (136-145) mEq/L Potassium (3.5-5.1) mEq/L Chloride (98-107) mEq/L Carbon Dioxide (21-32) mEq/L Anion Gap (5-15) BUN (7-18) mg/dL Creatinine (0.7-1.3) mg/dL Est Cr Clr Drug Dosing mL/min Estimated GFR (MDRD) (>60) mL/min BUN/Creatinine Ratio (14-18) Glucose (70-99) mg/dL POC Glucose 132 H 78 (70-99) mg/dL Calcium (8.5-10.1) mg/dL Phosphorus (2.6-4.7) mg/dL Magnesium (1.8-2.4) mg/dL Total Bilirubin (0.2-1.0) mg/dL AST (15-37) U/L ALT (16-63) U/L Alkaline Phosphatase (46-116) U/L Troponin I (0.00-0.056) ng/mL C-Reactive Protein (<1.0) mg/dL NT-Pro-B Natriuret Pep 339 (0-450) pg/mL Total Protein (6.4-8.2) g/dl Albumin (3.4-5.0) g/dl Globulin gm/dL Albumin/Globulin Ratio (1-2) Urine Color (Yellow) Urine Appearance (Clear) Urine pH (5.0-8.0) Ur Specific [place] (1.005-1.030) Urine Protein (Negative) Urine Glucose (UA) (Negative) Urine Ketones (Negative) Urine Occult Blood (Negative) Urine Nitrite (Negative) Urine Bilirubin (Negative) Urine Urobilinogen (0.2-1.0) Ur Leukocyte Esterase (Negative) Urine RBC (0-5) /hpf Urine WBC (0-5) /hpf Ur Squamous Epith Cells (0-5) /hpf Urine Bacteria (FEW) /hpf Urine Mucus (FEW) /hpf 07/04/21 07/05/21 07/05/21 Range/Units 21:00 06:02 06:02 WBC 9.80 H (4.23-9.07) K/mm3 RBC 5.05 (4.63-6.08) M/mm3 Hgb 15.9 (13.7-17.5) gm/dl Hct 48.9 (40.1-51.0) % MCV 96.8 H (79.0-92.2) fl MCH 31.5 (25.7-32.2) pg MCHC 32.5 (32.2-35.5) g/dl RDW Std Deviation 52.3 H (35.1-43.9) fL Plt Count 109 L (163-337) K/mm3 MPV 11.6 (9.4-12.3) fl Neut % (Auto) 80.1 H (34.0-67.9) % Lymph % (Auto) 9.1 L (21.8-53.1) % [place] % (Auto) 9.8 (5.3-12.2) % Eos % (Auto) 0.3 L (0.8-7.0) Baso % (Auto) 0.1 (0.1-1.2) % Neut # (Auto) 7.85 H (1.78-5.38) K/mm3 Lymph # (Auto) 0.89 L (1.32-3.57) K/mm3 [place] # (Auto) 0.96 H (0.30-0.82) K/mm3 Eos # (Auto) 0.03 L (0.04-0.54) K/mm3 Baso # (Auto) 0.01 (0.01-0.08) K/mm3 PT (9.7-12.0) SECONDS INR APTT (21.7-31.4) SECONDS D-Dimer, Quantitative (0.19-0.50) mg/L Sodium 131 L (136-145) mEq/L Potassium 3.5 (3.5-5.1) mEq/L Chloride 96 L (98-107) mEq/L Carbon Dioxide 25 (21-32) mEq/L Anion Gap 13.5 (5-15) BUN 18 (7-18) mg/dL Creatinine 0.9 (0.7-1.3) mg/dL Est Cr Clr Drug Dosing 78.91 mL/min Estimated GFR (MDRD) > 60 (>60) mL/min BUN/Creatinine Ratio 20.0 H (14-18) Glucose 64 L (70-99) mg/dL POC Glucose (70-99) mg/dL Calcium 8.6 (8.5-10.1) mg/dL Phosphorus (2.6-4.7) mg/dL Magnesium (1.8-2.4) mg/dL Total Bilirubin 0.9 (0.2-1.0) mg/dL AST 27 (15-37) U/L ALT 30 (16-63) U/L Alkaline Phosphatase 78 (46-116) U/L Troponin I (0.00-0.056) ng/mL C-Reactive Protein 23.3 H* (<1.0) mg/dL NT-Pro-B Natriuret Pep (0-450) pg/mL Total Protein 6.9 (6.4-8.2) g/dl Albumin 2.5 L (3.4-5.0) g/dl Globulin 4.4 gm/dL Albumin/Globulin Ratio 0.6 L (1-2) Urine Color Yellow (Yellow) Urine Appearance Clear (Clear) Urine pH 5.5 (5.0-8.0) Ur Specific [place] 1.025 (1.005-1.030) Urine Protein 1+ H (Negative) Urine Glucose (UA) 2+ H (Negative) Urine Ketones 1+ H (Negative) Urine Occult Blood Negative (Negative) Urine Nitrite Negative (Negative) Urine Bilirubin Negative (Negative) Urine Urobilinogen 0.2 (0.2-1.0) Ur Leukocyte Esterase Negative (Negative) Urine RBC 0-5 (0-5) /hpf Urine WBC 0-5 (0-5) /hpf Ur Squamous Epith Cells 0-5 (0-5) /hpf Urine Bacteria Few (FEW) /hpf Urine Mucus Not seen (FEW) /hpf 07/05/21 07/05/21 07/05/21 Range/Units 06:04 07:07 10:54 WBC (4.23-9.07) K/mm3 RBC (4.63-6.08) M/mm3 Hgb (13.7-17.5) gm/dl Hct (40.1-51.0) % MCV (79.0-92.2) fl MCH (25.7-32.2) pg MCHC (32.2-35.5) g/dl RDW Std Deviation (35.1-43.9) fL Plt Count (163-337) K/mm3 MPV (9.4-12.3) fl Neut % (Auto) (34.0-67.9) % Lymph % (Auto) (21.8-53.1) % [place] % (Auto) (5.3-12.2) % Eos % (Auto) (0.8-7.0) Baso % (Auto) (0.1-1.2) % Neut # (Auto) (1.78-5.38) K/mm3 Lymph # (Auto) (1.32-3.57) K/mm3 [place] # (Auto) (0.30-0.82) K/mm3 Eos # (Auto) (0.04-0.54) K/mm3 Baso # (Auto) (0.01-0.08) K/mm3 PT (9.7-12.0) SECONDS INR APTT (21.7-31.4) SECONDS D-Dimer, Quantitative (0.19-0.50) mg/L Sodium (136-145) mEq/L Potassium (3.5-5.1) mEq/L Chloride (98-107) mEq/L Carbon Dioxide (21-32) mEq/L Anion Gap (5-15) BUN (7-18) mg/dL Creatinine (0.7-1.3) mg/dL Est Cr Clr Drug Dosing mL/min Estimated GFR (MDRD) (>60) mL/min BUN/Creatinine Ratio (14-18) Glucose (70-99) mg/dL POC Glucose 68 L 170 H 152 H (70-99) mg/dL Calcium (8.5-10.1) mg/dL Phosphorus (2.6-4.7) mg/dL Magnesium (1.8-2.4) mg/dL Total Bilirubin (0.2-1.0) mg/dL AST (15-37) U/L ALT (16-63) U/L Alkaline Phosphatase (46-116) U/L Troponin I (0.00-0.056) ng/mL C-Reactive Protein (<1.0) mg/dL NT-Pro-B Natriuret Pep (0-450) pg/mL Total Protein (6.4-8.2) g/dl Albumin (3.4-5.0) g/dl Globulin gm/dL Albumin/Globulin Ratio (1-2) Urine Color (Yellow) Urine Appearance (Clear) Urine pH (5.0-8.0) Ur Specific [place] (1.005-1.030) Urine Protein (Negative) Urine Glucose (UA) (Negative) Urine Ketones (Negative) Urine Occult Blood (Negative) Urine Nitrite (Negative) Urine Bilirubin (Negative) Urine Urobilinogen (0.2-1.0) Ur Leukocyte Esterase (Negative) Urine RBC (0-5) /hpf Urine WBC (0-5) /hpf Ur Squamous Epith Cells (0-5) /hpf Urine Bacteria (FEW) /hpf Urine Mucus (FEW) /hpf Med Orders - Current: Current Medications Acetaminophen (Acetaminophen 325 Mg Tab) 650 mg PO Q6H PRN PRN Reason: Pain (Mild 1-3)/fever Last Admin: 07/05/21 06:20 Dose: 650 mg Documented by: Albuterol (Albuterol 6.7 Gm Inhaler) 0 gm INH Q4H PRN PRN Reason: Shortness of Breath Albuterol/Ipratropium (Albuterol/Ipratropium 3.0-0.5 Mg/3 Ml Neb Soln) 3 ml NEB Q4H PRN PRN Reason: Shortness Of Breath/wheezing Alogliptin Benzoate (Alogliptin 25 Mg Tab) 25 mg PO DAILY [facility] Last Admin: 07/05/21 08:46 Dose: 25 mg Documented by: Amlodipine Besylate (Amlodipine 10 Mg Tab) 10 mg PO DAILY [facility] Last Admin: 07/05/21 08:46 Dose: 10 mg Documented by: Apixaban (Apixaban 5 Mg Tab) 5 mg PO BID [facility] Last Admin: 07/05/21 08:47 Dose: 5 mg Documented by: Azithromycin (Azithromycin 250 Mg Tab) 500 mg PO DAILY [facility] Last Admin: 07/05/21 08:46 Dose: 500 mg Documented by: Cholecalciferol (Cholecalciferol (Vitamin D3) 25 Mcg Tab) 25 mcg PO DAILY [facility] Last Admin: 07/05/21 08:46 Dose: 25 mcg Documented by: Dexamethasone (Dexamethasone 4 Mg Tab) 6 mg PO DAILY [facility] Last Admin: 07/05/21 08:46 Dose: 6 mg Documented by: Fluticasone Propionate (Fluticasone Propionate Nasal [place] 16 Gm Bottle) 0 gm [place] DAILY [facility] Last Admin: 07/05/21 08:45 Dose: 1 spray Documented by: Folic Acid (Folic Acid 1 Mg Tab) 1 mg PO DAILY [facility] Last Admin: 07/05/21 08:47 Dose: 1 mg Documented by: Furosemide (Furosemide 80 Mg Tab) 80 mg PO DAILY PRN PRN Reason: Edema Guaifenesin (Guaifenesin 100 Mg/5 Ml Soln 10 Ml Ud Cup) 200 mg PO Q6H PRN PRN Reason: Cough Last Admin: 07/05/21 00:10 Dose: 200 mg Documented by: Hydralazine HCl (Hydralazine 20 Mg/Ml Sdv) 10 mg IVPUSH Q4H PRN PRN Reason: Hypertension Promethazine HCl 12.5 mg/ (Sodium Chloride) 50.5 mls @ 100 mls/hr IV Q6H PRN PRN Reason: Nausea/Vomiting Remdesivir 100 mg/ Sodium (Chloride) 100 mls @ 100 mls/hr IV Q24H [facility] Stop: 07/08/21 17:29 Ceftriaxone Sodium 2 gm/ (Sodium Chloride) 100 mls @ 200 mls/hr IV Q24H [facility] Last Admin: 07/04/21 20:01 Dose: 200 mls/hr Documented by: Insulin Glargine (Insulin Glarg,Human.Rec.Analog 100 Unit/Ml) 36 unit SUBCUT 2100 [facility] Insulin Human Lispro (Insulin Lispro 100 Unit/Ml 10 Ml Vial) 0 unit SUBCUT Q IDACANDBED [facility]; Protocol Last Admin: 07/05/21 11:19 Dose: 2 unit Documented by: Isosorbide Mononitrate (Isosorbide Mononitrate 60 Mg Tab.Er) 60 mg PO DAILY [facility] Last Admin: 07/05/21 08:47 Dose: 60 mg Documented by: Melatonin (Melatonin 3 Mg Tab) 3 mg PO BEDTIME [facility] Last Admin: 07/04/21 20:58 Dose: Not Given Documented by: Metoprolol Tartrate (Metoprolol Tartrate 25 Mg Tab) 12.5 mg PO Q12H [facility] Last Admin: 07/05/21 06:20 Dose: 12.5 mg Documented by: Mometasone Furoate/Formoterol Fumar (Formoterol/Mometasone 200-5 Mcg 8.8 Gm Inhaler) 2 puff IH BID [facility] Last Admin: 07/05/21 09:24 Dose: 2 puff Documented by: Montelukast Sodium (Montelukast 10 Mg Tab) 10 mg PO BEDTIME [facility] Last Admin: 07/04/21 20:57 Dose: 10 mg Documented by: Morphine Sulfate (Morphine 2 Mg/Ml Syringe) 2 mg IVPUSH Q4H PRN PRN Reason: Pain (severe 7-10) Stop: 07/05/21 16:10 Oxycodone HCl (Oxycodone 5 Mg Tab) 5 mg PO Q6H PRN PRN Reason: Pain (moderate 4-6) Pantoprazole Sodium (Pantoprazole 40 Mg Tab.Cr) 40 mg PO DAILY@0700 [facility] Last Admin: 07/05/21 06:20 Dose: 40 mg Documented by: Simvastatin (Simvastatin 40 Mg Tab) 40 mg PO BEDTIME [facility] Last Admin: 07/04/21 20:57 Dose: 40 mg Documented by: Trazodone HCl (Trazodone 50 Mg Tab) 50 mg PO BEDTIME [facility] Last Admin: 07/04/21 20:57 Dose: 50 mg Documented by: Zinc Sulfate (Zinc Sulfate 220 Mg Cap) 220 mg PO DAILY [facility] Last Admin: 07/05/21 08:46 Dose: 220 mg Documented by: Discontinued Medications Enoxaparin Sodium (Enoxaparin 40 Mg/0.4 Ml Syringe) 40 mg SUBCUT DAILY [facility] Last Admin: 07/04/21 18:50 Dose: Not Given Documented by: Furosemide (Furosemide 80 Mg Tab) 80 mg PO DAILY [facility] Last Admin: 07/05/21 08:47 Dose: Not Given Documented by: Remdesivir 200 mg/ Sodium (Chloride) 250 mls @ 250 mls/hr IV ONETIME ONE Stop: 07/04/21 17:29 Last Admin: 07/04/21 18:06 Dose: 250 mls/hr Documented by: Insulin Glargine (Insulin Glarg,Human.Rec.Analog 100 Unit/Ml) 40 unit SUBCUT BEDTIME [facility] Last Admin: 07/04/21 21:24 Dose: Not Given Documented by: - Exam Physical Findings Comments:: General: Alert, Oriented, Cooperative, Mild Distress (Due to shortness of breath) HEENT: Conjunctiva Clear, EOMI, Pupils Equal, Pupils Reactive Neck: Supple, Full Range of Motion. No: Lymphadenopathy, JVD Lungs: Normal Respiratory Effort, Decreased Breath Sounds, Crackles, Rhonchi Cardiovascular: Irregular Rhythm GI/Abdominal Exam: Normal Bowel Sounds, Soft, Non-Tender, No Organomegaly Extremities: Normal Inspection, Non-Tender, No Pedal Edema Skin: Warm, Dry, Intact Neurological: Strength Equal Bilateral, Sensation Intact Neuro Extensive - Mental Status: Alert, Oriented x3, Normal Mood/Affect - Patient Data Lab Results Last 24 hrs: Laboratory Results - last 24 hr 07/04/21 07/04/21 07/04/21 Range/Units 13:39 16:55 16:55 WBC (4.23-9.07) K/mm3 RBC (4.63-6.08) M/mm3 Hgb (13.7-17.5) gm/dl Hct (40.1-51.0) % MCV (79.0-92.2) fl MCH (25.7-32.2) pg MCHC (32.2-35.5) g/dl RDW Std Deviation (35.1-43.9) fL Plt Count (163-337) K/mm3 MPV (9.4-12.3) fl Neut % (Auto) (34.0-67.9) % Lymph % (Auto) (21.8-53.1) % [place] % (Auto) (5.3-12.2) % Eos % (Auto) (0.8-7.0) Baso % (Auto) (0.1-1.2) % Neut # (Auto) (1.78-5.38) K/mm3 Lymph # (Auto) (1.32-3.57) K/mm3 [place] # (Auto) (0.30-0.82) K/mm3 Eos # (Auto) (0.04-0.54) K/mm3 Baso # (Auto) (0.01-0.08) K/mm3 PT 11.3 (9.7-12.0) SECONDS INR 1.02 APTT 32.1 H (21.7-31.4) SECONDS D-Dimer, Quantitative 0.32 (0.19-0.50) mg/L Sodium (136-145) mEq/L Potassium (3.5-5.1) mEq/L Chloride (98-107) mEq/L Carbon Dioxide (21-32) mEq/L Anion Gap (5-15) BUN (7-18) mg/dL Creatinine (0.7-1.3) mg/dL Est Cr Clr Drug Dosing mL/min Estimated GFR (MDRD) (>60) mL/min BUN/Creatinine Ratio (14-18) Glucose (70-99) mg/dL POC Glucose (70-99) mg/dL Calcium (8.5-10.1) mg/dL Phosphorus 4.3 (2.6-4.7) mg/dL Magnesium 2.0 (1.8-2.4) mg/dL Total Bilirubin (0.2-1.0) mg/dL AST (15-37) U/L ALT (16-63) U/L Alkaline Phosphatase (46-116) U/L Troponin I < 0.017 (0.00-0.056) ng/mL C-Reactive Protein (<1.0) mg/dL NT-Pro-B Natriuret Pep (0-450) pg/mL Total Protein (6.4-8.2) g/dl Albumin (3.4-5.0) g/dl Globulin gm/dL Albumin/Globulin Ratio (1-2) Urine Color (Yellow) Urine Appearance (Clear) Urine pH (5.0-8.0) Ur Specific [place] (1.005-1.030) Urine Protein (Negative) Urine Glucose (UA) (Negative) Urine Ketones (Negative) Urine Occult Blood (Negative) Urine Nitrite (Negative) Urine Bilirubin (Negative) Urine Urobilinogen (0.2-1.0) Ur Leukocyte Esterase (Negative) Urine RBC (0-5) /hpf Urine WBC (0-5) /hpf Ur Squamous Epith Cells (0-5) /hpf Urine Bacteria (FEW) /hpf Urine Mucus (FEW) /hpf 07/04/21 07/04/21 07/04/21 Range/Units 16:55 18:18 20:44 WBC (4.23-9.07) K/mm3 RBC (4.63-6.08) M/mm3 Hgb (13.7-17.5) gm/dl Hct (40.1-51.0) % MCV (79.0-92.2) fl MCH (25.7-32.2) pg MCHC (32.2-35.5) g/dl RDW Std Deviation (35.1-43.9) fL Plt Count (163-337) K/mm3 MPV (9.4-12.3) fl Neut % (Auto) (34.0-67.9) % Lymph % (Auto) (21.8-53.1) % [place] % (Auto) (5.3-12.2) % Eos % (Auto) (0.8-7.0) Baso % (Auto) (0.1-1.2) % Neut # (Auto) (1.78-5.38) K/mm3 Lymph # (Auto) (1.32-3.57) K/mm3 [place] # (Auto) (0.30-0.82) K/mm3 Eos # (Auto) (0.04-0.54) K/mm3 Baso # (Auto) (0.01-0.08) K/mm3 PT (9.7-12.0) SECONDS INR APTT (21.7-31.4) SECONDS D-Dimer, Quantitative (0.19-0.50) mg/L Sodium (136-145) mEq/L Potassium (3.5-5.1) mEq/L Chloride (98-107) mEq/L Carbon Dioxide (21-32) mEq/L Anion Gap (5-15) BUN (7-18) mg/dL Creatinine (0.7-1.3) mg/dL Est Cr Clr Drug Dosing mL/min Estimated GFR (MDRD) (>60) mL/min BUN/Creatinine Ratio (14-18) Glucose (70-99) mg/dL POC Glucose 132 H 78 (70-99) mg/dL Calcium (8.5-10.1) mg/dL Phosphorus (2.6-4.7) mg/dL Magnesium (1.8-2.4) mg/dL Total Bilirubin (0.2-1.0) mg/dL AST (15-37) U/L ALT (16-63) U/L Alkaline Phosphatase (46-116) U/L Troponin I (0.00-0.056) ng/mL C-Reactive Protein (<1.0) mg/dL NT-Pro-B Natriuret Pep 339 (0-450) pg/mL Total Protein (6.4-8.2) g/dl Albumin (3.4-5.0) g/dl Globulin gm/dL Albumin/Globulin Ratio (1-2) Urine Color (Yellow) Urine Appearance (Clear) Urine pH (5.0-8.0) Ur Specific [place] (1.005-1.030) Urine Protein (Negative) Urine Glucose (UA) (Negative) Urine Ketones (Negative) Urine Occult Blood (Negative) Urine Nitrite (Negative) Urine Bilirubin (Negative) Urine Urobilinogen (0.2-1.0) Ur Leukocyte Esterase (Negative) Urine RBC (0-5) /hpf Urine WBC (0-5) /hpf Ur Squamous Epith Cells (0-5) /hpf Urine Bacteria (FEW) /hpf Urine Mucus (FEW) /hpf 07/04/21 07/05/21 07/05/21 Range/Units 21:00 06:02 06:02 WBC 9.80 H (4.23-9.07) K/mm3 RBC 5.05 (4.63-6.08) M/mm3 Hgb 15.9 (13.7-17.5) gm/dl Hct 48.9 (40.1-51.0) % MCV 96.8 H (79.0-92.2) fl MCH 31.5 (25.7-32.2) pg MCHC 32.5 (32.2-35.5) g/dl RDW Std Deviation 52.3 H (35.1-43.9) fL Plt Count 109 L (163-337) K/mm3 MPV 11.6 (9.4-12.3) fl Neut % (Auto) 80.1 H (34.0-67.9) % Lymph % (Auto) 9.1 L (21.8-53.1) % [place] % (Auto) 9.8 (5.3-12.2) % Eos % (Auto) 0.3 L (0.8-7.0) Baso % (Auto) 0.1 (0.1-1.2) % Neut # (Auto) 7.85 H (1.78-5.38) K/mm3 Lymph # (Auto) 0.89 L (1.32-3.57) K/mm3 [place] # (Auto) 0.96 H (0.30-0.82) K/mm3 Eos # (Auto) 0.03 L (0.04-0.54) K/mm3 Baso # (Auto) 0.01 (0.01-0.08) K/mm3 PT (9.7-12.0) SECONDS INR APTT (21.7-31.4) SECONDS D-Dimer, Quantitative (0.19-0.50) mg/L Sodium 131 L (136-145) mEq/L Potassium 3.5 (3.5-5.1) mEq/L Chloride 96 L (98-107) mEq/L Carbon Dioxide 25 (21-32) mEq/L Anion Gap 13.5 (5-15) BUN 18 (7-18) mg/dL Creatinine 0.9 (0.7-1.3) mg/dL Est Cr Clr Drug Dosing 78.91 mL/min Estimated GFR (MDRD) > 60 (>60) mL/min BUN/Creatinine Ratio 20.0 H (14-18) Glucose 64 L (70-99) mg/dL POC Glucose (70-99) mg/dL Calcium 8.6 (8.5-10.1) mg/dL Phosphorus (2.6-4.7) mg/dL Magnesium (1.8-2.4) mg/dL Total Bilirubin 0.9 (0.2-1.0) mg/dL AST 27 (15-37) U/L ALT 30 (16-63) U/L Alkaline Phosphatase 78 (46-116) U/L Troponin I (0.00-0.056) ng/mL C-Reactive Protein 23.3 H* (<1.0) mg/dL NT-Pro-B Natriuret Pep (0-450) pg/mL Total Protein 6.9 (6.4-8.2) g/dl Albumin 2.5 L (3.4-5.0) g/dl Globulin 4.4 gm/dL Albumin/Globulin Ratio 0.6 L (1-2) Urine Color Yellow (Yellow) Urine Appearance Clear (Clear) Urine pH 5.5 (5.0-8.0) Ur Specific [place] 1.025 (1.005-1.030) Urine Protein 1+ H (Negative) Urine Glucose (UA) 2+ H (Negative) Urine Ketones 1+ H (Negative) Urine Occult Blood Negative (Negative) Urine Nitrite Negative (Negative) Urine Bilirubin Negative (Negative) Urine Urobilinogen 0.2 (0.2-1.0) Ur Leukocyte Esterase Negative (Negative) Urine RBC 0-5 (0-5) /hpf Urine WBC 0-5 (0-5) /hpf Ur Squamous Epith Cells 0-5 (0-5) /hpf Urine Bacteria Few (FEW) /hpf Urine Mucus Not seen (FEW) /hpf 07/05/21 07/05/21 07/05/21 Range/Units 06:04 07:07 10:54 WBC (4.23-9.07) K/mm3 RBC (4.63-6.08) M/mm3 Hgb (13.7-17.5) gm/dl Hct (40.1-51.0) % MCV (79.0-92.2) fl MCH (25.7-32.2) pg MCHC (32.2-35.5) g/dl RDW Std Deviation (35.1-43.9) fL Plt Count (163-337) K/mm3 MPV (9.4-12.3) fl Neut % (Auto) (34.0-67.9) % Lymph % (Auto) (21.8-53.1) % [place] % (Auto) (5.3-12.2) % Eos % (Auto) (0.8-7.0) Baso % (Auto) (0.1-1.2) % Neut # (Auto) (1.78-5.38) K/mm3 Lymph # (Auto) (1.32-3.57) K/mm3 [place] # (Auto) (0.30-0.82) K/mm3 Eos # (Auto) (0.04-0.54) K/mm3 Baso # (Auto) (0.01-0.08) K/mm3 PT (9.7-12.0) SECONDS INR APTT (21.7-31.4) SECONDS D-Dimer, Quantitative (0.19-0.50) mg/L Sodium (136-145) mEq/L Potassium (3.5-5.1) mEq/L Chloride (98-107) mEq/L Carbon Dioxide (21-32) mEq/L Anion Gap (5-15) BUN (7-18) mg/dL Creatinine (0.7-1.3) mg/dL Est Cr Clr Drug Dosing mL/min Estimated GFR (MDRD) (>60) mL/min BUN/Creatinine Ratio (14-18) Glucose (70-99) mg/dL POC Glucose 68 L 170 H 152 H (70-99) mg/dL Calcium (8.5-10.1) mg/dL Phosphorus (2.6-4.7) mg/dL Magnesium (1.8-2.4) mg/dL Total Bilirubin (0.2-1.0) mg/dL AST (15-37) U/L ALT (16-63) U/L Alkaline Phosphatase (46-116) U/L Troponin I (0.00-0.056) ng/mL C-Reactive Protein (<1.0) mg/dL NT-Pro-B Natriuret Pep (0-450) pg/mL Total Protein (6.4-8.2) g/dl Albumin (3.4-5.0) g/dl Globulin gm/dL Albumin/Globulin Ratio (1-2) Urine Color (Yellow) Urine Appearance (Clear) Urine pH (5.0-8.0) Ur Specific [place] (1.005-1.030) Urine Protein (Negative) Urine Glucose (UA) (Negative) Urine Ketones (Negative) Urine Occult Blood (Negative) Urine Nitrite (Negative) Urine Bilirubin (Negative) Urine Urobilinogen (0.2-1.0) Ur Leukocyte Esterase (Negative) Urine RBC (0-5) /hpf Urine WBC (0-5) /hpf Ur Squamous Epith Cells (0-5) /hpf Urine Bacteria (FEW) /hpf Urine Mucus (FEW) /hpf Result Diagrams: 07/05/21 06:02 07/05/21 06:02 Sepsis Event Note - Evaluation Sepsis Screening Result: No Definite Risk - Focused Exam Vital Signs: Vital Signs Temp Pulse Resp BP Pulse Ox Pulse Ox 07/05/21 10:56 36.8 C 77 20 95/52 L 88 L 07/05/21 09:33 90 L 07/05/21 09:25 96 07/05/21 08:46 119/55 L 07/05/21 07:11 36.9 C 78 20 119/55 L 91 L 07/05/21 06:20 74 149/75 H 07/05/21 05:18 37.1 C 74 20 149/75 H 88 L - Problem List Review Problem List Initiated/Reviewed/Updated: Yes - My Orders Last 24 Hours: My Active Orders 07/04/21 15:38 Admission Status [Patient Status] [ADT] Routine 07/04/21 16:08 Bedrest Bedside Commode [RC] ASDIRECTED Acetaminophen [TylenoL] 650 mg PO Q6H PRN Albuterol/Ipratropium [DuoNeb 3.0-0.5 MG/3 ML] 3 ml NEB Q4H PRN Morphine 2 mg IVPUSH Q4H PRN Promethazine [Phenergan] 12.5 mg Sodium Chloride 0.9% [Normal Saline] 50 ml IV Q6H oxyCODONE 5 mg PO Q6H PRN Blood Culture x2 Reflex Set [OM.PC] Stat Resuscitation Status Routine 07/04/21 16:09 Intake and Output [RC] 04,16 Oxygen Therapy [RC] PRN VTE/DVT Education [RC] DAILY Vital Signs [RC] Q4HR 07/04/21 16:11 RT Aerosol Therapy [RC] ASDIRECTED 07/04/21 16:16 guaiFENesin [Robitussin] 200 mg PO Q6H PRN 07/04/21 16:21 hydrALAZINE [Apresoline] 10 mg IVPUSH Q4H PRN 07/04/21 16:23 Albuterol [Proventil HFA] 0 gm INH Q4H PRN 07/04/21 16:55 BLOOD CULTURE [MREF] Stat 07/04/21 16:57 BLOOD CULTURE [MREF] Stat 07/04/21 Dinner Consistent Carbohydrate Diet [DIET] Apixaban [Eliquis] 5 mg PO BID Insulin Lispro [HumaLOG] See Protocol SUBCUT QIDACANDBED Metoprolol Tartrate [Lopressor] 12.5 mg PO Q12H cefTRIAXone [Rocephin] 2 gm Sodium Chloride 0.9% [Normal Saline] 100 ml IV Q24H 07/04/21 18:01 Blood Glucose Check, Bedside [RC] QIDACANDBED 07/04/21 18:03 RT Chest Physiotherapy [RC] ASDIRECTED RT Incentive Spirometry [RC] ASDIRECTED 07/04/21 21:00 RESPIRATORY CULT [MREF] Stat Melatonin 3 mg PO BEDTIME Mometasone/Formoterol [Dulera 200-5 MCG] 2 puff IH BID Montelukast [Singulair] 10 mg PO BEDTIME Simvastatin [Zocor] 40 mg PO BEDTIME traZODone 50 mg PO BEDTIME 07/05/21 07:00 Pantoprazole [ProTONIX] 40 mg PO DAILY@0700 07/05/21 09:00 Alogliptin Benzoate [Alogliptin] 25 mg PO DAILY Azithromycin [Zithromax] 500 mg PO DAILY Cholecalciferol (Vitamin D3) [Vitamin D3] 25 mcg PO DAILY Fluticasone Propionate [Flonase] 0 gm WYATT DAILY Folic Acid 1 mg PO DAILY Isosorbide Mononitrate [Imdur] 60 mg PO DAILY Zinc Sulfate [Zincate] 220 mg PO DAILY amLODIPine [Norvasc] 10 mg PO DAILY dexAMETHasone 6 mg PO DAILY 07/05/21 16:30 Remdesivir 100 mg Sodium Chloride 0.9% [Normal Saline] 100 ml IV Q24H 07/05/21 21:00 Insulin Glarg,Human.Rec.Analog [LantUS] 36 unit SUBCUT 2100 07/06/21 05:00 C-REACTIVE PROTEIN [CHEM] DAILY CBC WITH AUTO DIFF [HEME] DAILY COMPREHENSIVE METABOLIC PN,CMP [CHEM] DAILY 07/06/21 09:00 Furosemide [Lasix] 80 mg PO DAILY PRN 07/07/21 05:00 C-REACTIVE PROTEIN [CHEM] DAILY CBC WITH AUTO DIFF [HEME] DAILY COMPREHENSIVE METABOLIC PN,CMP [CHEM] DAILY 07/08/21 05:00 C-REACTIVE PROTEIN [CHEM] DAILY CBC WITH AUTO DIFF [HEME] DAILY COMPREHENSIVE METABOLIC PN,CMP [CHEM] DAILY 07/09/21 05:00 C-REACTIVE PROTEIN [CHEM] DAILY CBC WITH AUTO DIFF [HEME] DAILY COMPREHENSIVE METABOLIC PN,CMP [CHEM] DAILY - Plan Plan:: Patient is a 75-year-old male with a past medical history of COPD, atrial fibrillation, diabetes type 2, CHF, and hypertension who was directly admitted to the hospital from her PCP office due to oxygen desaturation. Acute on chronic hypoxic respiratory failure Etiologies include COPD, CHF, pneumonia Patient is on home oxygen 2 L at night only Pulse ox Oxygen therapy, high flow/BiPAP as needed to keep oxygen saturation greater than 88-90% Covid 19 pneumonia X-ray showed bilateral pneumonia in the PCP office Blood culture no growth Sputum culture Ceftriaxone and azithromycin 5-day course of remdesivir 10-day course of dexamethasone Continue Eliquis 5 mg twice daily Inhalers Repeat CBC, CMP, CRP in morning COPD Inhalers CHF Unknown type BNP 339 Troponin negative Continue Home medications Lasix 80 mg daily Magnesium 2.0 Intake and output Atrial fibrillaiton Heart rate controlled Carvedilol 25 mg twice daily is on hold Initiated metoprolol 12.5 mg twice daily Metoprolol 2.5 mg IV push as needed Continue Eliquis 5 mg twice daily Diabetes type 2 Hypoglycemia, one episode of hypoglycemia, 68 on July 05, 2021 Diabetic diet Continue Januvia. Metformin is on hold Decreased continue lantus to 36 units daily from 40units daily Insulin sliding scale Adjust insulin based on sugar levels Hypertension Continue amlodipine 10mg daily, losartan 100mg daily, imdur 60mg daily Added metoprolol 12.5 mg twice daily Carvedilol 25mg bid is on hold Hydralazine as needed DVT prophylaxis: Chetna CODE STATUS: Full Disposition: 2 more days
[2021-07-05] MEDS ORDERED: LOTEPREDNOL EYEBOTH PRN (14:08)
[2021-07-05] MEDS ORDERED: TOBRAMYCIN EYEBOTH PRN (14:08)
[2021-07-05] MEDS: Albuterol 6.7 GM Inhaler INH PRN ×2 (16:36→19:28)
[2021-07-05] MEDS: cefTRIAXone 2 GM in Sodium Chloride 0.9% 100 ML IV SCH (16:42)
[2021-07-05] MEDS: REMDESIVIR 100 MG in Sodium Chloride 0.9% 100 ML IV SCH (16:42)
[2021-07-05] MEDS: Simvastatin 40 MG Tab PO SCH (20:10)
[2021-07-05] MEDS: traZODone 50 MG Tab PO SCH (20:11)
[2021-07-05] MEDS: Melatonin 3 MG Tab PO SCH (20:11)
[2021-07-05] MEDS: Montelukast 10 MG Tab PO SCH (20:11)
[2021-07-05] MEDS: Insulin Glarg,Human.Rec.Analog 100 Unit/ML SUBCUT SCH (20:48)
[2021-07-05] MEDS ORDERED: Non-Formulary Medication 1 Each (Budesonide/Formoterol 6 GM Inhaler) INH SCH (21:00)
[2021-07-06] MEDS: Metoprolol Tartrate 25 MG Tab PO SCH ×2 (04:46→17:23)
[2021-07-06] MEDS: Insulin Lispro 100 UNIT/ML 10 ML Vial SUBCUT SCH ×4 (08:15→22:05)
[2021-07-06] MEDS: Albuterol 6.7 GM Inhaler INH PRN ×3 (08:24→20:59)
[2021-07-06] MEDS: Formoterol/Mometasone 200-5 MCG 8.8 GM Inhaler IH SCH ×2 (08:24→20:59)
[2021-07-06] MEDS: Isosorbide Mononitrate 60 MG Tab.ER PO SCH (08:37)
[2021-07-06] MEDS: amLODIPine 5 MG Tab PO SCH (08:37)
[2021-07-06] MEDS: Folic Acid 1 MG Tab PO SCH (08:37)
[2021-07-06] MEDS: Apixaban 5 MG Tab PO SCH ×2 (08:37→21:44)
[2021-07-06] MEDS: Pantoprazole 40 MG Tab.CR PO SCH (08:38)
[2021-07-06] MEDS: Cholecalciferol (Vitamin D3) 25 MCG Tab PO SCH (08:38)
[2021-07-06] MEDS: Zinc Sulfate 220 MG Cap PO SCH (08:38)
[2021-07-06] MEDS: Dexamethasone 4 MG Tab PO SCH (08:38)
[2021-07-06] MEDS: Fluticasone Propionate Nasal Spray 16 GM Bottle NAS SCH (08:38)
[2021-07-06] MEDS: Azithromycin 250 MG Tab PO SCH (08:38)
[2021-07-06] MEDS: oxyCODONE 5 MG Tab PO PRN ×2 (08:44→21:44)
[2021-07-06] MEDS ORDERED: Furosemide 80 MG Tab PO PRN (09:00)
--- NOTE | 2021-07-06 13:39 | PCM.PN ---
- General Info Date of Service: 07/06/21 Admission Dx/Problem (Free Text): Admission Diagnosis/Problem Admission Diagnosis/Problem Hypoxia Subjective Update: Patient is a 75-year-old male with a past medical history of COPD, atrial fibrillation, diabetes type 2, CHF, and hypertension who was directly admitted to the hospital from her PCP office due to oxygen desaturation. Patient possibly had a positive Covid test on June 20, 2021. Patient is complains of diarrhea, watery BM x 4 this morning. Denies fever, chills, nausea, vomiting, or abdominal pain. He eats all 3 L today Platelets 118 today CRP 23.7 No more episode of hypoglycemia - Review of Systems General: Reports: Weakness, Fatigue HEENT: Reports: No Symptoms Pulmonary: Reports: Shortness of Breath Cardiovascular: Reports: No Symptoms Gastrointestinal: Reports: Diarrhea Genitourinary: Reports: No Symptoms Musculoskeletal: Reports: No Symptoms Skin: Reports: No Symptoms Neurological: Reports: No Symptoms Psychiatric: Reports: No Symptoms - Patient Data Vitals - Most Recent: Last Vital Signs Temp 36.6 C 07/06/21 08:34 Pulse 75 07/06/21 08:34 Resp 18 07/06/21 08:34 BP 123/71 07/06/21 08:37 Pulse Ox 88 L 07/06/21 08:34 Weight - Most Recent: 86.682 kg I&O - Last 24 Hours: Intake & Output 07/05/21 07/06/21 07/06/21 22:59 06:59 14:59 Intake Total 1820 900 Output Total 3 Balance 1817 900 Lab Results Last 24 Hours: Laboratory Results - last 24 hr 07/05/21 07/05/21 07/06/21 Range/Units 16:21 20:07 06:08 WBC 6.88 (4.23-9.07) K/mm3 RBC 4.85 (4.63-6.08) M/mm3 Hgb 15.3 (13.7-17.5) gm/dl Hct 46.4 (40.1-51.0) % MCV 95.7 H (79.0-92.2) fl MCH 31.5 (25.7-32.2) pg MCHC 33.0 (32.2-35.5) g/dl RDW Std Deviation 50.2 H (35.1-43.9) fL Plt Count 118 L (163-337) K/mm3 MPV 10.8 (9.4-12.3) fl Neut % (Auto) 76.7 H (34.0-67.9) % Lymph % (Auto) 9.3 L (21.8-53.1) % [place] % (Auto) 13.2 H (5.3-12.2) % Eos % (Auto) 0 L (0.8-7.0) Baso % (Auto) 0.1 (0.1-1.2) % Neut # (Auto) 5.27 (1.78-5.38) K/mm3 Lymph # (Auto) 0.64 L (1.32-3.57) K/mm3 [place] # (Auto) 0.91 H (0.30-0.82) K/mm3 Eos # (Auto) 0.00 L (0.04-0.54) K/mm3 Baso # (Auto) 0.01 (0.01-0.08) K/mm3 Sodium (136-145) mEq/L Potassium (3.5-5.1) mEq/L Chloride (98-107) mEq/L Carbon Dioxide (21-32) mEq/L Anion Gap (5-15) BUN (7-18) mg/dL Creatinine (0.7-1.3) mg/dL Est Cr Clr Drug Dosing mL/min Estimated GFR (MDRD) (>60) mL/min BUN/Creatinine Ratio (14-18) Glucose (70-99) mg/dL POC Glucose 185 H 236 H (70-99) mg/dL Calcium (8.5-10.1) mg/dL Total Bilirubin (0.2-1.0) mg/dL AST (15-37) U/L ALT (16-63) U/L Alkaline Phosphatase (46-116) U/L C-Reactive Protein (<1.0) mg/dL Total Protein (6.4-8.2) g/dl Albumin (3.4-5.0) g/dl Globulin gm/dL Albumin/Globulin Ratio (1-2) 07/06/21 07/06/21 07/06/21 Range/Units 06:08 06:46 10:23 WBC (4.23-9.07) K/mm3 RBC (4.63-6.08) M/mm3 Hgb (13.7-17.5) gm/dl Hct (40.1-51.0) % MCV (79.0-92.2) fl MCH (25.7-32.2) pg MCHC (32.2-35.5) g/dl RDW Std Deviation (35.1-43.9) fL Plt Count (163-337) K/mm3 MPV (9.4-12.3) fl Neut % (Auto) (34.0-67.9) % Lymph % (Auto) (21.8-53.1) % [place] % (Auto) (5.3-12.2) % Eos % (Auto) (0.8-7.0) Baso % (Auto) (0.1-1.2) % Neut # (Auto) (1.78-5.38) K/mm3 Lymph # (Auto) (1.32-3.57) K/mm3 [place] # (Auto) (0.30-0.82) K/mm3 Eos # (Auto) (0.04-0.54) K/mm3 Baso # (Auto) (0.01-0.08) K/mm3 Sodium 138 (136-145) mEq/L Potassium 3.6 (3.5-5.1) mEq/L Chloride 103 (98-107) mEq/L Carbon Dioxide 23 (21-32) mEq/L Anion Gap 15.6 H (5-15) BUN 23 H (7-18) mg/dL Creatinine 0.9 (0.7-1.3) mg/dL Est Cr Clr Drug Dosing 78.91 mL/min Estimated GFR (MDRD) > 60 (>60) mL/min BUN/Creatinine Ratio 25.6 H (14-18) Glucose 132 H (70-99) mg/dL POC Glucose 129 H 231 H (70-99) mg/dL Calcium 8.7 (8.5-10.1) mg/dL Total Bilirubin 0.4 (0.2-1.0) mg/dL AST 45 H (15-37) U/L ALT 45 (16-63) U/L Alkaline Phosphatase 72 (46-116) U/L C-Reactive Protein 20.2 H* (<1.0) mg/dL Total Protein 6.6 (6.4-8.2) g/dl Albumin 2.2 L (3.4-5.0) g/dl Globulin 4.4 gm/dL Albumin/Globulin Ratio 0.5 L (1-2) Mushtaq Results Last 24 Hours: Microbiology 07/04/21 16:57 Blood Culture - Preliminary Blood - Venous - Lab Draw 07/04/21 16:55 Blood Culture - Preliminary Blood - Venous 07/04/21 21:00 Respiratory Culture - Preliminary Sputum - Expectorated Gram Stain - Final Med Orders - Current: Current Medications Acetaminophen (Acetaminophen 325 Mg Tab) 650 mg PO Q6H PRN PRN Reason: Pain (Mild 1-3)/fever Last Admin: 07/05/21 20:11 Dose: 650 mg Documented by: Albuterol (Albuterol 6.7 Gm Inhaler) 0 gm INH Q4H PRN PRN Reason: Shortness of Breath Last Admin: 07/06/21 08:24 Dose: 2 puff Documented by: Albuterol/Ipratropium (Albuterol/Ipratropium 3.0-0.5 Mg/3 Ml Neb Soln) 3 ml NEB Q4H PRN PRN Reason: Shortness Of Breath/wheezing Alogliptin Benzoate (Alogliptin 25 Mg Tab) 25 mg PO DAILY [facility] Last Admin: 07/06/21 08:37 Dose: 25 mg Documented by: Amlodipine Besylate (Amlodipine 5 Mg Tab) 5 mg PO DAILY [facility] Last Admin: 07/06/21 08:37 Dose: 5 mg Documented by: Apixaban (Apixaban 5 Mg Tab) 5 mg PO BID [facility] Last Admin: 07/06/21 08:37 Dose: 5 mg Documented by: Azithromycin (Azithromycin 250 Mg Tab) 500 mg PO DAILY [facility] Last Admin: 07/06/21 08:38 Dose: 500 mg Documented by: Cholecalciferol (Cholecalciferol (Vitamin D3) 25 Mcg Tab) 25 mcg PO DAILY [facility] Last Admin: 07/06/21 08:38 Dose: 25 mcg Documented by: Dexamethasone (Dexamethasone 4 Mg Tab) 6 mg PO DAILY [facility] Last Admin: 07/06/21 08:38 Dose: 6 mg Documented by: Fluticasone Propionate (Fluticasone Propionate Nasal [place] 16 Gm Bottle) 0 gm WYATT DAILY [facility] Last Admin: 07/06/21 08:38 Dose: 2 spray Documented by: Folic Acid (Folic Acid 1 Mg Tab) 1 mg PO DAILY [facility] Last Admin: 07/06/21 08:37 Dose: 1 mg Documented by: Furosemide (Furosemide 80 Mg Tab) 80 mg PO DAILY PRN PRN Reason: Edema Guaifenesin (Guaifenesin 100 Mg/5 Ml Soln 10 Ml Ud Cup) 200 mg PO Q6H PRN PRN Reason: Cough Last Admin: 07/05/21 00:10 Dose: 200 mg Documented by: Hydralazine HCl (Hydralazine 20 Mg/Ml Sdv) 10 mg IVPUSH Q4H PRN PRN Reason: Hypertension Promethazine HCl 12.5 mg/ (Sodium Chloride) 50.5 mls @ 100 mls/hr IV Q6H PRN PRN Reason: Nausea/Vomiting Remdesivir 100 mg/ Sodium (Chloride) 100 mls @ 100 mls/hr IV Q24H [facility] Stop: 07/08/21 17:29 Last Admin: 07/05/21 16:42 Dose: 100 mls/hr Documented by: Ceftriaxone Sodium 2 gm/ (Sodium Chloride) 100 mls @ 200 mls/hr IV Q24H [facility] Last Admin: 07/05/21 16:42 Dose: 200 mls/hr Documented by: Insulin Glargine (Insulin Glarg,Human.Rec.Analog 100 Unit/Ml) 36 unit SUBCUT 2100 [facility] Last Admin: 07/05/21 20:48 Dose: 36 unit Documented by: Insulin Human Lispro (Insulin Lispro 100 Unit/Ml 10 Ml Vial) 0 unit SUBCUT QIDACANDBED [facility]; Protocol Last Admin: 07/06/21 08:15 Dose: Not Given Documented by: Isosorbide Mononitrate (Isosorbide Mononitrate 60 Mg Tab.Er) 60 mg PO DAILY [facility] Last Admin: 07/06/21 08:37 Dose: 60 mg Documented by: Melatonin (Melatonin 3 Mg Tab) 3 mg PO BEDTIME [facility] Last Admin: 07/05/21 20:11 Dose: 3 mg Documented by: Metoprolol Tartrate (Metoprolol Tartrate 25 Mg Tab) 12.5 mg PO Q12H [facility] Last Admin: 07/06/21 04:46 Dose: 12.5 mg Documented by: Mometasone Furoate/Formoterol Fumar (Formoterol/Mometasone 200-5 Mcg 8.8 Gm Inhaler) 2 puff IH BID [facility] Last Admin: 07/06/21 08:24 Dose: 2 puff Documented by: Montelukast Sodium (Montelukast 10 Mg Tab) 10 mg PO BEDTIME [facility] Last Admin: 07/05/21 20:11 Dose: 10 mg Documented by: Tobramycin/Lotepred Etab [Zylet Eye Drops] 10 Ml Drops * *Ptom 1 drop EYEBOTH DAILY PRN PRN Reason: Dry Eyes Oxycodone HCl (Oxycodone 5 Mg Tab) 5 mg PO Q6H PRN PRN Reason: Pain (moderate 4-6) Last Admin: 07/06/21 08:44 Dose: 5 mg Documented by: Pantoprazole Sodium (Pantoprazole 40 Mg Tab.Cr) 40 mg PO DAILY@0700 [facility] Last Admin: 07/06/21 08:38 Dose: 40 mg Documented by: Simvastatin (Simvastatin 40 Mg Tab) 40 mg PO BEDTIME [facility] Last Admin: 07/05/21 20:10 Dose: 40 mg Documented by: Trazodone HCl (Trazodone 50 Mg Tab) 50 mg PO BEDTIME [facility] Last Admin: 07/05/21 20:11 Dose: 50 mg Documented by: Zinc Sulfate (Zinc Sulfate 220 Mg Cap) 220 mg PO DAILY [facility] Last Admin: 07/06/21 08:38 Dose: 220 mg Documented by: Discontinued Medications Amlodipine Besylate (Amlodipine 10 Mg Tab) 10 mg PO DAILY [facility] Last Admin: 07/05/21 08:46 Dose: 10 mg Documented by: Enoxaparin Sodium (Enoxaparin 40 Mg/0.4 Ml Syringe) 40 mg SUBCUT DAILY [facility] Last Admin: 07/04/21 18:50 Dose: Not Given Documented by: Furosemide (Furosemide 80 Mg Tab) 80 mg PO DAILY [facility] Last Admin: 07/05/21 08:47 Dose: Not Given Documented by: Remdesivir 200 mg/ Sodium (Chloride) 250 mls @ 250 mls/hr IV ONETIME ONE Stop: 07/04/21 17:29 Last Admin: 07/04/21 18:06 Dose: 250 mls/hr Documented by: Insulin Glargine (Insulin Glarg,Human.Rec.Analog 100 Unit/Ml) 40 unit SUBCUT BEDTIME [facility] Last Admin: 07/04/21 21:24 Dose: Not Given Documented by: Morphine Sulfate (Morphine 2 Mg/Ml Syringe) 2 mg IVPUSH Q4H PRN PRN Reason: Pain (severe 7-10) Stop: 07/05/21 16:10 - Exam Physical Findings Comments:: General: Alert, Oriented, Cooperative, Mild Distress (Due to shortness of breath) HEENT: Conjunctiva Clear, EOMI, Pupils Equal, Pupils Reactive Neck: Supple, Full Range of Motion. No: Lymphadenopathy, JVD Lungs: Normal Respiratory Effort, Decreased Breath Sounds, Crackles, Rhonchi Cardiovascular: Irregular Rhythm GI/Abdominal Exam: Normal Bowel Sounds, Soft, Non-Tender, No Organomegaly Extremities: Normal Inspection, Non-Tender, No Pedal Edema Skin: Warm, Dry, Intact Neurological: Strength Equal Bilateral, Sensation Intact Neuro Extensive - Mental Status: Alert, Oriented x3, Normal Mood/Affect - Patient Data Lab Results Last 24 hrs: Laboratory Results - last 24 hr 07/05/21 07/05/21 07/06/21 Range/Units 16:21 20:07 06:08 WBC 6.88 (4.23-9.07) K/mm3 RBC 4.85 (4.63-6.08) M/mm3 Hgb 15.3 (13.7-17.5) gm/dl Hct 46.4 (40.1-51.0) % MCV 95.7 H (79.0-92.2) fl MCH 31.5 (25.7-32.2) pg MCHC 33.0 (32.2-35.5) g/dl RDW Std Deviation 50.2 H (35.1-43.9) fL Plt Count 118 L (163-337) K/mm3 MPV 10.8 (9.4-12.3) fl Neut % (Auto) 76.7 H (34.0-67.9) % Lymph % (Auto) 9.3 L (21.8-53.1) % [place] % (Auto) 13.2 H (5.3-12.2) % Eos % (Auto) 0 L (0.8-7.0) Baso % (Auto) 0.1 (0.1-1.2) % Neut # (Auto) 5.27 (1.78-5.38) K/mm3 Lymph # (Auto) 0.64 L (1.32-3.57) K/mm3 [place] # (Auto) 0.91 H (0.30-0.82) K/mm3 Eos # (Auto) 0.00 L (0.04-0.54) K/mm3 Baso # (Auto) 0.01 (0.01-0.08) K/mm3 Sodium (136-145) mEq/L Potassium (3.5-5.1) mEq/L Chloride (98-107) mEq/L Carbon Dioxide (21-32) mEq/L Anion Gap (5-15) BUN (7-18) mg/dL Creatinine (0.7-1.3) mg/dL Est Cr Clr Drug Dosing mL/min Estimated GFR (MDRD) (>60) mL/min BUN/Creatinine Ratio (14-18) Glucose (70-99) mg/dL POC Glucose 185 H 236 H (70-99) mg/dL Calcium (8.5-10.1) mg/dL Total Bilirubin (0.2-1.0) mg/dL AST (15-37) U/L ALT (16-63) U/L Alkaline Phosphatase (46-116) U/L C-Reactive Protein (<1.0) mg/dL Total Protein (6.4-8.2) g/dl Albumin (3.4-5.0) g/dl Globulin gm/dL Albumin/Globulin Ratio (1-2) 07/06/21 07/06/21 07/06/21 Range/Units 06:08 06:46 10:23 WBC (4.23-9.07) K/mm3 RBC (4.63-6.08) M/mm3 Hgb (13.7-17.5) gm/dl Hct (40.1-51.0) % MCV (79.0-92.2) fl MCH (25.7-32.2) pg MCHC (32.2-35.5) g/dl RDW Std Deviation (35.1-43.9) fL Plt Count (163-337) K/mm3 MPV (9.4-12.3) fl Neut % (Auto) (34.0-67.9) % Lymph % (Auto) (21.8-53.1) % [place] % (Auto) (5.3-12.2) % Eos % (Auto) (0.8-7.0) Baso % (Auto) (0.1-1.2) % Neut # (Auto) (1.78-5.38) K/mm3 Lymph # (Auto) (1.32-3.57) K/mm3 [place] # (Auto) (0.30-0.82) K/mm3 Eos # (Auto) (0.04-0.54) K/mm3 Baso # (Auto) (0.01-0.08) K/mm3 Sodium 138 (136-145) mEq/L Potassium 3.6 (3.5-5.1) mEq/L Chloride 103 (98-107) mEq/L Carbon Dioxide 23 (21-32) mEq/L Anion Gap 15.6 H (5-15) BUN 23 H (7-18) mg/dL Creatinine 0.9 (0.7-1.3) mg/dL Est Cr Clr Drug Dosing 78.91 mL/min Estimated GFR (MDRD) > 60 (>60) mL/min BUN/Creatinine Ratio 25.6 H (14-18) Glucose 132 H (70-99) mg/dL POC Glucose 129 H 231 H (70-99) mg/dL Calcium 8.7 (8.5-10.1) mg/dL Total Bilirubin 0.4 (0.2-1.0) mg/dL AST 45 H (15-37) U/L ALT 45 (16-63) U/L Alkaline Phosphatase 72 (46-116) U/L C-Reactive Protein 20.2 H* (<1.0) mg/dL Total Protein 6.6 (6.4-8.2) g/dl Albumin 2.2 L (3.4-5.0) g/dl Globulin 4.4 gm/dL Albumin/Globulin Ratio 0.5 L (1-2) Result Diagrams: 07/06/21 06:08 07/06/21 06:08 Mushtaq Results Last 24 hrs: Microbiology 07/04/21 16:57 Blood Culture - Preliminary Blood - Venous - Lab Draw 07/04/21 16:55 Blood Culture - Preliminary Blood - Venous 07/04/21 21:00 Respiratory Culture - Preliminary Sputum - Expectorated Gram Stain - Final Sepsis Event Note - Evaluation Sepsis Screening Result: No Definite Risk - Focused Exam Vital Signs: Vital Signs Temp Pulse Resp BP Pulse Ox Pulse Ox 07/06/21 08:37 123/71 07/06/21 08:34 36.6 C 75 18 123/71 88 L 07/06/21 08:24 91 L 07/06/21 05:15 93 L 07/06/21 04:46 62 122/75 07/06/21 04:44 36.4 C 62 20 122/75 92 L - Problem List Review Problem List Initiated/Reviewed/Updated: Yes - My Orders Last 24 Hours: My Active Orders 07/05/21 14:08 Tobramycin/Lotepred Etab [Zylet Eye Drops] 1 drop EYEBOTH DAILY PRN 07/05/21 16:30 Remdesivir 100 mg Sodium Chloride 0.9% [Normal Saline] 100 ml IV Q24H 07/05/21 21:00 Insulin Glarg,Human.Rec.Analog [LantUS] 36 unit SUBCUT 2100 07/06/21 09:00 Furosemide [Lasix] 80 mg PO DAILY PRN amLODIPine [Norvasc] 5 mg PO DAILY 07/06/21 11:03 Consult to Physical Therapy [PT Evaluation and Treatment] [CONS] Routine 07/06/21 11:04 Consult to Occupational Therapy [OT Evaluation and Treatment] [CONS] Routine 07/07/21 05:00 C-REACTIVE PROTEIN [CHEM] DAILY CBC WITH AUTO DIFF [HEME] DAILY COMPREHENSIVE METABOLIC PN,CMP [CHEM] DAILY 07/08/21 05:00 C-REACTIVE PROTEIN [CHEM] DAILY CBC WITH AUTO DIFF [HEME] DAILY COMPREHENSIVE METABOLIC PN,CMP [CHEM] DAILY 07/09/21 05:00 C-REACTIVE PROTEIN [CHEM] DAILY CBC WITH AUTO DIFF [HEME] DAILY COMPREHENSIVE METABOLIC PN,CMP [CHEM] DAILY - Plan Plan:: Patient is a 75-year-old male with a past medical history of COPD, atrial fibrillation, diabetes type 2, CHF, and hypertension who was directly admitted to the hospital from her PCP office due to oxygen desaturation. Acute on chronic hypoxic respiratory failure Etiologies include COPD, CHF, pneumonia Patient is on home oxygen 2 L at night only Pulse ox Oxygen therapy, high flow/BiPAP as needed to keep oxygen saturation greater than 88-90% Covid 19 pneumonia X-ray showed bilateral pneumonia in the PCP office Blood culture no growth Sputum culture Ceftriaxone and azithromycin 5-day course of remdesivir 10-day course of dexamethasone Continue Eliquis 5 mg twice daily Inhalers Repeat CBC, CMP, CRP in morning COPD Inhalers CHF Unknown type BNP 339 Troponin negative Euvolemic status Continue Home medications Lasix 80 mg daily Magnesium 2.0 Intake and output Atrial fibrillation Heart rate controlled Home carvedilol 25 mg twice daily is on hold Initiated metoprolol 12.5 mg twice daily Metoprolol 2.5 mg IV push as needed Continue Eliquis 5 mg twice daily Diabetes type 2 Hypoglycemia, one episode of hypoglycemia, 68 on July 05, 2021 Diabetic diet Continue Januvia. Metformin is on hold Decreased continue lantus to 36 units daily from 40units daily Insulin sliding scale Adjust insulin based on sugar levels Hypertension Continue amlodipine 10mg daily, losartan 100mg daily, imdur 60mg daily Added metoprolol 12.5 mg twice daily Carvedilol 25mg bid is on hold Hydralazine as needed Thrombocytopenia 118 today No evidence of bleeding Repeat CBC in am DVT prophylaxis: Eliquis CODE STATUS: Full Disposition: 1-2 more days
[2021-07-06] MEDS: REMDESIVIR 100 MG in Sodium Chloride 0.9% 100 ML IV SCH (17:22)
[2021-07-06] MEDS: cefTRIAXone 2 GM in Sodium Chloride 0.9% 100 ML IV SCH (17:22)
[2021-07-06] MEDS: traZODone 50 MG Tab PO SCH (21:43)
[2021-07-06] MEDS: Melatonin 3 MG Tab PO SCH (21:44)
[2021-07-06] MEDS: Montelukast 10 MG Tab PO SCH (21:44)
[2021-07-06] MEDS: guaiFENesin 100 MG/5 ML Soln 10 ML UD Cup PO PRN (21:44)
[2021-07-06] MEDS: Simvastatin 40 MG Tab PO SCH (21:44)
[2021-07-06] MEDS: Insulin Glarg,Human.Rec.Analog 100 Unit/ML SUBCUT SCH (21:46)
[2021-07-07] MEDS: Acetaminophen 325 MG Tab PO PRN (01:55)
[2021-07-07] MEDS: Metoprolol Tartrate 25 MG Tab PO SCH ×2 (06:10→16:50)
[2021-07-07] MEDS: Pantoprazole 40 MG Tab.CR PO SCH (06:10)
--- NOTE | 2021-07-07 08:08 | PCM.PN ---
<Noam Cruz - Last Filed: 07/07/21 10:22> - General Info Date of Service: 07/07/21 Admission Dx/Problem (Free Text): Admission Diagnosis/Problem Admission Diagnosis/Problem Hypoxia Subjective Update: 75-year-old male admitted to the floor for treatment of COVID-19 pneumonia. Patient resides in [place] with his . He does have home oxygen which he utilizes at bedtime. He is requiring 2 L here with saturations in the very low 90s. Labs today show mild leukocytosis of 10.13 which is likely steroid related. Platelets are low but improved to 125,000. Neutrophils are 81.2%. Sodium is 139. Potassium is 3.4 and this will be supplemented. Anion gap is improved to 12.4. BUN is up to 30. Creatinine 1.0. GFR remains greater than 60. Glucose is 1 56-3 11. CRP has improved to 10.0. Protein is 6.1 and albumin is down to 2.0. Patient has been receiving daily azithromycin which she has completed he is on day 4 of Rocephin and will complete treatment with this tomorrow he will complete his remdesivir tomorrow as well. Blood cultures have remained negative. Patient is on home Eliquis. Plan will be for discharge tomorrow pending continued improvement. Patient will likely be required to continue to wear home oxygen at discharge. Functional Status: Reports: Pain Controlled, Tolerating Diet, Ambulating, Urinating, Incentive Spirometry, Other. Denies: New Symptoms - Review of Systems General: Reports: Weakness (improving ). Denies: Fever, Fatigue, Malaise, Chills HEENT: Reports: No Symptoms. Denies: Headaches, Sore Throat Pulmonary: Reports: Shortness of Breath, Cough, Sputum Cardiovascular: Reports: No Symptoms. Denies: Chest Pain, Palpitations, Dyspnea on Exertion, Edema Gastrointestinal: Reports: Diarrhea. Denies: Abdominal Pain, Constipation, Nausea, Vomiting Genitourinary: Reports: No Symptoms Musculoskeletal: Reports: No Symptoms Skin: Reports: No Symptoms. Denies: Cyanosis Neurological: Denies: Confusion, Dizziness, Headache, Numbness, Pre-Existing Deficit, Seizure, Syncope, Tingling, Difficulty Walking, Weakness, Gait Disturb ance Psychiatric: Reports: No Symptoms - Patient Data Vitals - Most Recent: Last Vital Signs Temp 97.5 F 07/07/21 01:54 Pulse 60 07/07/21 06:10 Resp 20 07/07/21 01:54 BP 128/71 07/07/21 06:10 Pulse Ox 95 07/07/21 05:25 Weight - Most Recent: 90.083 kg I&O - Last 24 Hours: Intake & Output 07/06/21 07/07/21 07/07/21 22:59 06:59 14:59 Intake Total 1100 450 Output Total 1200 Balance 1100 -750 Lab Results Last 24 Hours: Laboratory Results - last 24 hr 07/06/21 07/06/21 07/06/21 Range/Units 06:08 10:23 16:39 WBC (4.23-9.07) K/mm3 RBC (4.63-6.08) M/mm3 Hgb (13.7-17.5) gm/dl Hct (40.1-51.0) % MCV (79.0-92.2) fl MCH (25.7-32.2) pg MCHC (32.2-35.5) g/dl RDW Std Deviation (35.1-43.9) fL Plt Count (163-337) K/mm3 MPV (9.4-12.3) fl Neut % (Auto) (34.0-67.9) % Lymph % (Auto) (21.8-53.1) % [place] % (Auto) (5.3-12.2) % Eos % (Auto) (0.8-7.0) Baso % (Auto) (0.1-1.2) % Neut # (Auto) (1.78-5.38) K/mm3 Lymph # (Auto) (1.32-3.57) K/mm3 [place] # (Auto) (0.30-0.82) K/mm3 Eos # (Auto) (0.04-0.54) K/mm3 Baso # (Auto) (0.01-0.08) K/mm3 Sodium (136-145) mEq/L Potassium (3.5-5.1) mEq/L Chloride (98-107) mEq/L Carbon Dioxide (21-32) mEq/L Anion Gap (5-15) BUN (7-18) mg/dL Creatinine (0.7-1.3) mg/dL Est Cr Clr Drug Dosing mL/min Estimated GFR (MDRD) (>60) mL/min BUN/Creatinine Ratio (14-18) Glucose (70-99) mg/dL POC Glucose 231 H 311 H (70-99) mg/dL Calcium (8.5-10.1) mg/dL Total Bilirubin (0.2-1.0) mg/dL AST (15-37) U/L ALT (16-63) U/L Alkaline Phosphatase (46-116) U/L C-Reactive Protein 20.2 H* (<1.0) mg/dL Total Protein (6.4-8.2) g/dl Albumin (3.4-5.0) g/dl Globulin gm/dL Albumin/Globulin Ratio (1-2) 07/06/21 07/07/21 07/07/21 Range/Units 21:40 06:06 06:06 WBC 10.13 H (4.23-9.07) K/mm3 RBC 4.49 L (4.63-6.08) M/mm3 Hgb 14.2 (13.7-17.5) gm/dl Hct 43.0 (40.1-51.0) % MCV 95.8 H (79.0-92.2) fl MCH 31.6 (25.7-32.2) pg MCHC 33.0 (32.2-35.5) g/dl RDW Std Deviation 49.7 H (35.1-43.9) fL Plt Count 125 L (163-337) K/mm3 MPV 11.2 (9.4-12.3) fl Neut % (Auto) 81.2 H (34.0-67.9) % Lymph % (Auto) 8.5 L (21.8-53.1) % [place] % (Auto) 9.8 (5.3-12.2) % Eos % (Auto) 0 L (0.8-7.0) Baso % (Auto) 0.0 L (0.1-1.2) % Neut # (Auto) 8.23 H (1.78-5.38) K/mm3 Lymph # (Auto) 0.86 L (1.32-3.57) K/mm3 [place] # (Auto) 0.99 H (0.30-0.82) K/mm3 Eos # (Auto) 0.00 L (0.04-0.54) K/mm3 Baso # (Auto) 0.00 L (0.01-0.08) K/mm3 Sodium 139 (136-145) mEq/L Potassium 3.4 L (3.5-5.1) mEq/L Chloride 105 (98-107) mEq/L Carbon Dioxide 25 (21-32) mEq/L Anion Gap 12.4 (5-15) BUN 30 H (7-18) mg/dL Creatinine 1.0 (0.7-1.3) mg/dL Est Cr Clr Drug Dosing 71.02 mL/min Estimated GFR (MDRD) > 60 (>60) mL/min BUN/Creatinine Ratio 30.0 H (14-18) Glucose 160 H (70-99) mg/dL POC Glucose 263 H (70-99) mg/dL Calcium 8.5 (8.5-10.1) mg/dL Total Bilirubin 0.4 (0.2-1.0) mg/dL AST 23 (15-37) U/L ALT 36 (16-63) U/L Alkaline Phosphatase 65 (46-116) U/L C-Reactive Protein 10.0 H* (<1.0) mg/dL Total Protein 6.1 L (6.4-8.2) g/dl Albumin 2.0 L (3.4-5.0) g/dl Globulin 4.1 gm/dL Albumin/Globulin Ratio 0.5 L (1-2) 07/07/21 Range/Units 06:06 WBC (4.23-9.07) K/mm3 RBC (4.63-6.08) M/mm3 Hgb (13.7-17.5) gm/dl Hct (40.1-51.0) % MCV (79.0-92.2) fl MCH (25.7-32.2) pg MCHC (32.2-35.5) g/dl RDW Std Deviation (35.1-43.9) fL Plt Count (163-337) K/mm3 MPV (9.4-12.3) fl Neut % (Auto) (34.0-67.9) % Lymph % (Auto) (21.8-53.1) % [place] % (Auto) (5.3-12.2) % Eos % (Auto) (0.8-7.0) Baso % (Auto) (0.1-1.2) % Neut # (Auto) (1.78-5.38) K/mm3 Lymph # (Auto) (1.32-3.57) K/mm3 [place] # (Auto) (0.30-0.82) K/mm3 Eos # (Auto) (0.04-0.54) K/mm3 Baso # (Auto) (0.01-0.08) K/mm3 Sodium (136-145) mEq/L Potassium (3.5-5.1) mEq/L Chloride (98-107) mEq/L Carbon Dioxide (21-32) mEq/L Anion Gap (5-15) BUN (7-18) mg/dL Creatinine (0.7-1.3) mg/dL Est Cr Clr Drug Dosing mL/min Estimated GFR (MDRD) (>60) mL/min BUN/Creatinine Ratio (14-18) Glucose (70-99) mg/dL POC Glucose 156 H (70-99) mg/dL Calcium (8.5-10.1) mg/dL Total Bilirubin (0.2-1.0) mg/dL AST (15-37) U/L ALT (16-63) U/L Alkaline Phosphatase (46-116) U/L C-Reactive Protein (<1.0) mg/dL Total Protein (6.4-8.2) g/dl Albumin (3.4-5.0) g/dl Globulin gm/dL Albumin/Globulin Ratio (1-2) Mushtaq Results Last 24 Hours: Microbiology 07/04/21 16:57 Blood Culture - Preliminary Blood - Venous - Lab Draw 07/04/21 16:55 Blood Culture - Preliminary Blood - Venous 07/04/21 21:00 Respiratory Culture - Preliminary Sputum - Expectorated Gram Stain - Final Med Orders - Current: Current Medications Acetaminophen (Acetaminophen 325 Mg Tab) 650 mg PO Q6H PRN PRN Reason: Pain (Mild 1-3)/fever Last Admin: 07/07/21 01:55 Dose: 650 mg Documented by: Albuterol (Albuterol 6.7 Gm Inhaler) 0 gm INH Q4H PRN PRN Reason: Shortness of Breath Last Admin: 07/06/21 20:59 Dose: 2 puff Documented by: Albuterol/Ipratropium (Albuterol/Ipratropium 3.0-0.5 Mg/3 Ml Neb Soln) 3 ml NEB Q4H PRN PRN Reason: Shortness Of Breath/wheezing Alogliptin Benzoate (Alogliptin 25 Mg Tab) 25 mg PO DAILY [facility] Last Admin: 07/06/21 08:37 Dose: 25 mg Documented by: Amlodipine Besylate (Amlodipine 5 Mg Tab) 5 mg PO DAILY [facility] Last Admin: 07/06/21 08:37 Dose: 5 mg Documented by: Apixaban (Apixaban 5 Mg Tab) 5 mg PO BID [facility] Last Admin: 07/06/21 21:44 Dose: 5 mg Documented by: Azithromycin (Azithromycin 250 Mg Tab) 500 mg PO DAILY [facility] Last Admin: 07/06/21 08:38 Dose: 500 mg Documented by: Cholecalciferol (Cholecalciferol (Vitamin D3) 25 Mcg Tab) 25 mcg PO DAILY [facility] Last Admin: 07/06/21 08:38 Dose: 25 mcg Documented by: Dexamethasone (Dexamethasone 4 Mg Tab) 6 mg PO DAILY [facility] Last Admin: 07/06/21 08:38 Dose: 6 mg Documented by: Fluticasone Propionate (Fluticasone Propionate Nasal [place] 16 Gm Bottle) 0 gm [place] DAILY [facility] Last Admin: 07/06/21 08:38 Dose: 2 spray Documented by: Folic Acid (Folic Acid 1 Mg Tab) 1 mg PO DAILY [facility] Last Admin: 07/06/21 08:37 Dose: 1 mg Documented by: Furosemide (Furosemide 80 Mg Tab) 80 mg PO DAILY PRN PRN Reason: Edema Guaifenesin (Guaifenesin 100 Mg/5 Ml Soln 10 Ml Ud Cup) 200 mg PO Q6H PRN PRN Reason: Cough Last Admin: 07/06/21 21:44 Dose: 200 mg Documented by: Hydralazine HCl (Hydralazine 20 Mg/Ml Sdv) 10 mg IVPUSH Q4H PRN PRN Reason: Hypertension Promethazine HCl 12.5 mg/ (Sodium Chloride) 50.5 mls @ 100 mls/hr IV Q6H PRN PRN Reason: Nausea/Vomiting Remdesivir 100 mg/ Sodium (Chloride) 100 mls @ 100 mls/hr IV Q24H [facility] Stop: 07/08/21 17:29 Last Admin: 07/06/21 17:22 Dose: 100 mls/hr Documented by: Ceftriaxone Sodium 2 gm/ (Sodium Chloride) 100 mls @ 200 mls/hr IV Q24H [facility] Last Admin: 07/06/21 17:22 Dose: 200 mls/hr Documented by: Insulin Glargine (Insulin Glarg,Human.Rec.Analog 100 Unit/Ml) 36 unit SUBCUT 2100 [facility] Last Admin: 07/06/21 21:46 Dose: 36 unit Documented by: Insulin Human Lispro (Insulin Lispro 100 Unit/Ml 10 Ml Vial) 0 unit SUBCUT QIDACANDBED [facility]; Protocol Last Admin: 07/06/21 22:05 Dose: 6 unit Documented by: Isosorbide Mononitrate (Isosorbide Mononitrate 60 Mg Tab.Er) 60 mg PO DAILY [facility] Last Admin: 07/06/21 08:37 Dose: 60 mg Documented by: Melatonin (Melatonin 3 Mg Tab) 3 mg PO BEDTIME [facility] Last Admin: 07/06/21 21:44 Dose: 3 mg Documented by: Metoprolol Tartrate (Metoprolol Tartrate 25 Mg Tab) 12.5 mg PO Q12H [facility] Last Admin: 07/07/21 06:10 Dose: 12.5 mg Documented by: Mometasone Furoate/Formoterol Fumar (Formoterol/Mometasone 200-5 Mcg 8.8 Gm Inhaler) 2 puff IH BID [facility] Last Admin: 07/06/21 20:59 Dose: 2 puff Documented by: Montelukast Sodium (Montelukast 10 Mg Tab) 10 mg PO BEDTIME [facility] Last Admin: 07/06/21 21:44 Dose: 10 mg Documented by: Tobramycin/Lotepred Etab [Zylet Eye Drops] 10 Ml Drops * *Ptom 1 drop EYEBOTH DAILY PRN PRN Reason: Dry Eyes Oxycodone HCl (Oxycodone 5 Mg Tab) 5 mg PO Q6H PRN PRN Reason: Pain (moderate 4-6) Last Admin: 07/06/21 21:44 Dose: 5 mg Documented by: Pantoprazole Sodium (Pantoprazole 40 Mg Tab.Cr) 40 mg PO DAILY@0700 [facility] Last Admin: 07/07/21 06:10 Dose: 40 mg Documented by: Simvastatin (Simvastatin 40 Mg Tab) 40 mg PO BEDTIME [facility] Last Admin: 07/06/21 21:44 Dose: 40 mg Documented by: Trazodone HCl (Trazodone 50 Mg Tab) 50 mg PO BEDTIME [facility] Last Admin: 07/06/21 21:43 Dose: 50 mg Documented by: Zinc Sulfate (Zinc Sulfate 220 Mg Cap) 220 mg PO DAILY [facility] Last Admin: 07/06/21 08:38 Dose: 220 mg Documented by: Discontinued Medications Amlodipine Besylate (Amlodipine 10 Mg Tab) 10 mg PO DAILY [facility] Last Admin: 07/05/21 08:46 Dose: 10 mg Documented by: Enoxaparin Sodium (Enoxaparin 40 Mg/0.4 Ml Syringe) 40 mg SUBCUT DAILY [facility] Last Admin: 07/04/21 18:50 Dose: Not Given Documented by: Furosemide (Furosemide 80 Mg Tab) 80 mg PO DAILY [facility] Last Admin: 07/05/21 08:47 Dose: Not Given Documented by: Remdesivir 200 mg/ Sodium (Chloride) 250 mls @ 250 mls/hr IV ONETIME ONE Stop: 07/04/21 17:29 Last Admin: 07/04/21 18:06 Dose: 250 mls/hr Documented by: Insulin Glargine (Insulin Glarg,Human.Rec.Analog 100 Unit/Ml) 40 unit SUBCUT BEDTIME [facility] Last Admin: 07/04/21 21:24 Dose: Not Given Documented by: Morphine Sulfate (Morphine 2 Mg/Ml Syringe) 2 mg IVPUSH Q4H PRN PRN Reason: Pain (severe 7-10) Stop: 07/05/21 16:10 - Exam Quality Assessment: Supplemental Oxygen (2L), DVT Prophylaxis. No: Urine Catheter General: Alert, No Acute Distress HEENT: Pupils Equal, Pupils Reactive, Mucous Membr. Moist/[place] Neck: Supple, Trachea Midline Lungs: Normal Respiratory Effort, Decreased Breath Sounds, Crackles Cardiovascular: Regular Rate, Irregular Rhythm GI/Abdominal Exam: Normal Bowel Sounds, Soft, Non-Tender, No Distention (Male) Exam: Deferred Back Exam: Normal Inspection, Full Range of Motion Extremities: Normal Inspection, Normal Range of Motion, Non-Tender, No Pedal Edema, Normal Capillary Refill Peripheral Pulses: 2+: Radial (L), Radial (R), Dorsalis Pedis (L), Dorsalis Pedis (R) Skin: Warm, Dry, Intact Neurological: No New Focal Deficit Psy/Mental Status: Alert, Normal Affect, Normal Mood - Patient Data Lab Results Last 24 hrs: Laboratory Results - last 24 hr 07/06/21 07/06/21 07/06/21 Range/Units 06:08 10:23 16:39 WBC (4.23-9.07) K/mm3 RBC (4.63-6.08) M/mm3 Hgb (13.7-17.5) gm/dl Hct (40.1-51.0) % MCV (79.0-92.2) fl MCH (25.7-32.2) pg MCHC (32.2-35.5) g/dl RDW Std Deviation (35.1-43.9) fL Plt Count (163-337) K/mm3 MPV (9.4-12.3) fl Neut % (Auto) (34.0-67.9) % Lymph % (Auto) (21.8-53.1) % [place] % (Auto) (5.3-12.2) % Eos % (Auto) (0.8-7.0) Baso % (Auto) (0.1-1.2) % Neut # (Auto) (1.78-5.38) K/mm3 Lymph # (Auto) (1.32-3.57) K/mm3 [place] # (Auto) (0.30-0.82) K/mm3 Eos # (Auto) (0.04-0.54) K/mm3 Baso # (Auto) (0.01-0.08) K/mm3 Sodium (136-145) mEq/L Potassium (3.5-5.1) mEq/L Chloride (98-107) mEq/L Carbon Dioxide (21-32) mEq/L Anion Gap (5-15) BUN (7-18) mg/dL Creatinine (0.7-1.3) mg/dL Est Cr Clr Drug Dosing mL/min Estimated GFR (MDRD) (>60) mL/min BUN/Creatinine Ratio (14-18) Glucose (70-99) mg/dL POC Glucose 231 H 311 H (70-99) mg/dL Calcium (8.5-10.1) mg/dL Total Bilirubin (0.2-1.0) mg/dL AST (15-37) U/L ALT (16-63) U/L Alkaline Phosphatase (46-116) U/L C-Reactive Protein 20.2 H* (<1.0) mg/dL Total Protein (6.4-8.2) g/dl Albumin (3.4-5.0) g/dl Globulin gm/dL Albumin/Globulin Ratio (1-2) 07/06/21 07/07/21 07/07/21 Range/Units 21:40 06:06 06:06 WBC 10.13 H (4.23-9.07) K/mm3 RBC 4.49 L (4.63-6.08) M/mm3 Hgb 14.2 (13.7-17.5) gm/dl Hct 43.0 (40.1-51.0) % MCV 95.8 H (79.0-92.2) fl MCH 31.6 (25.7-32.2) pg MCHC 33.0 (32.2-35.5) g/dl RDW Std Deviation 49.7 H (35.1-43.9) fL Plt Count 125 L (163-337) K/mm3 MPV 11.2 (9.4-12.3) fl Neut % (Auto) 81.2 H (34.0-67.9) % Lymph % (Auto) 8.5 L (21.8-53.1) % [place] % (Auto) 9.8 (5.3-12.2) % Eos % (Auto) 0 L (0.8-7.0) Baso % (Auto) 0.0 L (0.1-1.2) % Neut # (Auto) 8.23 H (1.78-5.38) K/mm3 Lymph # (Auto) 0.86 L (1.32-3.57) K/mm3 [place] # (Auto) 0.99 H (0.30-0.82) K/mm3 Eos # (Auto) 0.00 L (0.04-0.54) K/mm3 Baso # (Auto) 0.00 L (0.01-0.08) K/mm3 Sodium 139 (136-145) mEq/L Potassium 3.4 L (3.5-5.1) mEq/L Chloride 105 (98-107) mEq/L Carbon Dioxide 25 (21-32) mEq/L Anion Gap 12.4 (5-15) BUN 30 H (7-18) mg/dL Creatinine 1.0 (0.7-1.3) mg/dL Est Cr Clr Drug Dosing 71.02 mL/min Estimated GFR (MDRD) > 60 (>60) mL/min BUN/Creatinine Ratio 30.0 H (14-18) Glucose 160 H (70-99) mg/dL POC Glucose 263 H (70-99) mg/dL Calcium 8.5 (8.5-10.1) mg/dL Total Bilirubin 0.4 (0.2-1.0) mg/dL AST 23 (15-37) U/L ALT 36 (16-63) U/L Alkaline Phosphatase 65 (46-116) U/L C-Reactive Protein 10.0 H* (<1.0) mg/dL Total Protein 6.1 L (6.4-8.2) g/dl Albumin 2.0 L (3.4-5.0) g/dl Globulin 4.1 gm/dL Albumin/Globulin Ratio 0.5 L (1-2) 07/07/21 Range/Units 06:06 WBC (4.23-9.07) K/mm3 RBC (4.63-6.08) M/mm3 Hgb (13.7-17.5) gm/dl Hct (40.1-51.0) % MCV (79.0-92.2) fl MCH (25.7-32.2) pg MCHC (32.2-35.5) g/dl RDW Std Deviation (35.1-43.9) fL Plt Count (163-337) K/mm3 MPV (9.4-12.3) fl Neut % (Auto) (34.0-67.9) % Lymph % (Auto) (21.8-53.1) % [place] % (Auto) (5.3-12.2) % Eos % (Auto) (0.8-7.0) Baso % (Auto) (0.1-1.2) % Neut # (Auto) (1.78-5.38) K/mm3 Lymph # (Auto) (1.32-3.57) K/mm3 [place] # (Auto) (0.30-0.82) K/mm3 Eos # (Auto) (0.04-0.54) K/mm3 Baso # (Auto) (0.01-0.08) K/mm3 Sodium (136-145) mEq/L Potassium (3.5-5.1) mEq/L Chloride (98-107) mEq/L Carbon Dioxide (21-32) mEq/L Anion Gap (5-15) BUN (7-18) mg/dL Creatinine (0.7-1.3) mg/dL Est Cr Clr Drug Dosing mL/min Estimated GFR (MDRD) (>60) mL/min BUN/Creatinine Ratio (14-18) Glucose (70-99) mg/dL POC Glucose 156 H (70-99) mg/dL Calcium (8.5-10.1) mg/dL Total Bilirubin (0.2-1.0) mg/dL AST (15-37) U/L ALT (16-63) U/L Alkaline Phosphatase (46-116) U/L C-Reactive Protein (<1.0) mg/dL Total Protein (6.4-8.2) g/dl Albumin (3.4-5.0) g/dl Globulin gm/dL Albumin/Globulin Ratio (1-2) Result Diagrams: 07/07/21 06:06 07/07/21 06:06 Mushtaq Results Last 24 hrs: Microbiology 07/04/21 16:57 Blood Culture - Preliminary Blood - Venous - Lab Draw 07/04/21 16:55 Blood Culture - Preliminary Blood - Venous 07/04/21 21:00 Respiratory Culture - Preliminary Sputum - Expectorated Gram Stain - Final Sepsis Event Note - Evaluation Sepsis Screening Result: No Definite Risk - Focused Exam Vital Signs: Vital Signs Temp Pulse Resp BP Pulse Ox Pulse Ox 07/07/21 06:10 60 128/71 07/07/21 05:25 95 07/07/21 01:54 97.5 F 66 20 144/68 H 91 L 07/06/21 21:43 98.2 F 72 26 H 121/64 88 L 07/06/21 21:00 93 L - Problem List & Annotations (1) Pneumonia due to COVID-19 virus SNOMED Code(s): 910773803111361483 Code(s): U07.1 - COVID-19; J12.82 - PNEUMONIA DUE TO CORONAVIRUS DISEASE 2019 Status: Acute Priority: High (2) COPD (chronic obstructive pulmonary disease) SNOMED Code(s): 55875006 Code(s): J44.9 - CHRONIC OBSTRUCTIVE PULMONARY DISEASE, UNSPECIFIED Status: Chronic Priority: Medium Qualifiers: COPD type: unspecified COPD Qualified Code(s): J44.9 - Chronic obstructive pulmonary disease, unspecified (3) CHF (congestive heart failure) SNOMED Code(s): 62094965 Code(s): I50.9 - HEART FAILURE, UNSPECIFIED Status: Chronic Priority: Medium Qualifiers: Heart failure type: unspecified Heart failure chronicity: chronic Qualified Code(s): I50.9 - Heart failure, unspecified (4) Afib SNOMED Code(s): 26980419 Code(s): I48.91 - UNSPECIFIED ATRIAL FIBRILLATION Status: Chronic Priority: Low Qualifiers: Atrial fibrillation type: unspecified Qualified Code(s): I48.91 - Unspecified atrial fibrillation (5) Type II diabetes mellitus SNOMED Code(s): 51250953 Code(s): E11.9 - TYPE 2 DIABETES MELLITUS WITHOUT COMPLICATIONS Status: Chronic Priority: Medium Qualifiers: 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 Diabetes mellitus complication status: with other specified complication Qualified Code(s): E11.69 - Type 2 diabetes mellitus with other specified complication; Z79.4 - [facility] (current) use of insulin (6) HTN (hypertension) SNOMED Code(s): 11406512 Code(s): I10 - ESSENTIAL (PRIMARY) HYPERTENSION Status: Chronic Priority: Medium Qualifiers: Hypertension type: unspecified Qualified Code(s): I10 - Essential (primary) hypertension (7) Thrombocytopenia SNOMED Code(s): 511181788 Code(s): D69.6 - THROMBOCYTOPENIA, UNSPECIFIED Status: Acute Priority: Medium (8) Hypokalemia SNOMED Code(s): 35820275 Code(s): E87.6 - HYPOKALEMIA Status: Acute Priority: High - Problem List Review Problem List Initiated/Reviewed/Updated: Yes - Plan Plan:: Patient is a 75-year-old male with a past medical history of COPD, atrial fibrillation, diabetes type 2, CHF, and hypertension who was directly admitted to the hospital from her PCP office due to oxygen desaturation. Acute on chronic hypoxic respiratory failure Etiologies include COPD, CHF, pneumonia Patient is on home oxygen 2 L at night only at home Pulse ox Oxygen therapy, high flow/BiPAP as needed to keep oxygen saturation greater than 88-90% Covid 19 pneumonia X-ray showed bilateral pneumonia in the PCP office Blood culture no growth Sputum culture Ceftriaxone day 4, completed azithromycin 5-day course of remdesivir 10-day course of dexamethasone Continue Eliquis 5 mg twice daily Inhalers Repeat CBC, CMP, CRP in morning COPD Inhalers CHF Unknown type BNP 339 Troponin negative Euvolemic status Continue Home medications Lasix 80 mg daily Magnesium 2.0 Intake and output Atrial fibrillation Heart rate controlled Home carvedilol 25 mg twice daily is on hold Initiated metoprolol 12.5 mg twice daily Metoprolol 2.5 mg IV push as needed Continue Eliquis 5 mg twice daily Diabetes type 2 Hypoglycemia, one episode of hypoglycemia, 67 on July 05, 2021 Diabetic diet Continue Januvia. Metformin is on hold Decreased continue lantus to 36 units daily from 40units daily Insulin sliding scale Adjust insulin based on sugar levels Hypertension Continue amlodipine 10mg daily, losartan 100mg daily, imdur 60mg daily Added metoprolol 12.5 mg twice daily Carvedilol 25mg bid is on hold Hydralazine as needed Thrombocytopenia, improving 225 today No evidence of bleeding Repeat CBC in am Hypokalemia Potassium 3.4 Supplement PO Re-check CMP in AM DVT prophylaxis: Eliquis CODE STATUS: Full Disposition: Likely discharge tomorrow. Patient is hopeful for discharge before 9AM if possible. LOS >96 Hours due to continued treatment for COVID-19 pneumonia <Louis Ashford - Last Filed: 07/08/21 16:45> - Patient Data Vitals - Most Recent: Last Vital Signs Temp 36.4 C 07/08/21 08:18 Pulse 54 L 07/08/21 08:18 Resp 20 07/07/21 20:59 BP 140/83 07/08/21 08:20 Pulse Ox 92 L 07/08/21 09:00 I&O - Last 24 Hours: Intake & Output 07/08/21 07/08/21 07/08/21 06:59 14:59 22:59 Intake Total 1000 860 Balance 1000 860 Lab Results Last 24 Hours: Laboratory Results - last 24 hr 07/07/21 07/08/21 07/08/21 Range/Units 20:55 04:22 05:33 WBC 8.49 (4.23-9.07) K/mm3 RBC 4.64 (4.63-6.08) M/mm3 Hgb 14.6 (13.7-17.5) gm/dl Hct 44.4 (40.1-51.0) % MCV 95.7 H (79.0-92.2) fl MCH 31.5 (25.7-32.2) pg MCHC 32.9 (32.2-35.5) g/dl RDW Std Deviation 50.0 H (35.1-43.9) fL Plt Count 146 L (163-337) K/mm3 MPV 10.9 (9.4-12.3) fl Neut % (Auto) 78.9 H (34.0-67.9) % Lymph % (Auto) 11.0 L (21.8-53.1) % [place] % (Auto) 9.7 (5.3-12.2) % Eos % (Auto) 0 L (0.8-7.0) Baso % (Auto) 0.0 L (0.1-1.2) % Neut # (Auto) 6.71 H (1.78-5.38) K/mm3 Lymph # (Auto) 0.93 L (1.32-3.57) K/mm3 [place] # (Auto) 0.82 (0.30-0.82) K/mm3 Eos # (Auto) 0.00 L (0.04-0.54) K/mm3 Baso # (Auto) 0.00 L (0.01-0.08) K/mm3 Sodium (136-145) mEq/L Potassium (3.5-5.1) mEq/L Chloride (98-107) mEq/L Carbon Dioxide (21-32) mEq/L Anion Gap (5-15) BUN (7-18) mg/dL Creatinine (0.7-1.3) mg/dL Est Cr Clr Drug Dosing mL/min Estimated GFR (MDRD) (>60) mL/min BUN/Creatinine Ratio (14-18) Glucose (70-99) mg/dL POC Glucose 290 H 144 H (70-99) mg/dL Calcium (8.5-10.1) mg/dL Total Bilirubin (0.2-1.0) mg/dL AST (15-37) U/L ALT (16-63) U/L Alkaline Phosphatase (46-116) U/L C-Reactive Protein (<1.0) mg/dL Total Protein (6.4-8.2) g/dl Albumin (3.4-5.0) g/dl Globulin gm/dL Albumin/Globulin Ratio (1-2) 07/08/21 Range/Units 05:33 WBC (4.23-9.07) K/mm3 RBC (4.63-6.08) M/mm3 Hgb (13.7-17.5) gm/dl Hct (40.1-51.0) % MCV (79.0-92.2) fl MCH (25.7-32.2) pg MCHC (32.2-35.5) g/dl RDW Std Deviation (35.1-43.9) fL Plt Count (163-337) K/mm3 MPV (9.4-12.3) fl Neut % (Auto) (34.0-67.9) % Lymph % (Auto) (21.8-53.1) % [place] % (Auto) (5.3-12.2) % Eos % (Auto) (0.8-7.0) Baso % (Auto) (0.1-1.2) % Neut # (Auto) (1.78-5.38) K/mm3 Lymph # (Auto) (1.32-3.57) K/mm3 [place] # (Auto) (0.30-0.82) K/mm3 Eos # (Auto) (0.04-0.54) K/mm3 Baso # (Auto) (0.01-0.08) K/mm3 Sodium 140 (136-145) mEq/L Potassium 3.9 (3.5-5.1) mEq/L Chloride 107 (98-107) mEq/L Carbon Dioxide 25 (21-32) mEq/L Anion Gap 11.9 (5-15) BUN 22 H (7-18) mg/dL Creatinine 0.8 (0.7-1.3) mg/dL Est Cr Clr Drug Dosing 88.78 mL/min Estimated GFR (MDRD) > 60 (>60) mL/min BUN/Creatinine Ratio 27.5 H (14-18) Glucose 149 H (70-99) mg/dL POC Glucose (70-99) mg/dL Calcium 8.3 L (8.5-10.1) mg/dL Total Bilirubin 0.4 (0.2-1.0) mg/dL AST 18 (15-37) U/L ALT 35 (16-63) U/L Alkaline Phosphatase 69 (46-116) U/L C-Reactive Protein 5.8 H* (<1.0) mg/dL Total Protein 6.2 L (6.4-8.2) g/dl Albumin 2.1 L (3.4-5.0) g/dl Globulin 4.1 gm/dL Albumin/Globulin Ratio 0.5 L (1-2) [place] Results Last 24 Hours: Microbiology 07/04/21 21:00 Respiratory Culture - Final Sputum - Expectorated Gram Stain - Final Med Orders - Current: Current Medications Discontinued Medications Acetaminophen (Acetaminophen 325 Mg Tab) 650 mg PO Q6H PRN PRN Reason: Pain (Mild 1-3)/fever Last Admin: 07/08/21 06:31 Dose: 650 mg Documented by: Albuterol (Albuterol 6.7 Gm Inhaler) 0 gm INH Q4H PRN PRN Reason: Shortness of Breath Last Admin: 07/07/21 20:34 Dose: 2 puff Documented by: Albuterol/Ipratropium (Albuterol/Ipratropium 3.0-0.5 Mg/3 Ml Neb Soln) 3 ml NEB Q4H PRN PRN Reason: Shortness Of Breath/wheezing Alogliptin Benzoate (Alogliptin 25 Mg Tab) 25 mg PO DAILY [facility] Last Admin: 07/08/21 08:20 Dose: 25 mg Documented by: Amlodipine Besylate (Amlodipine 10 Mg Tab) 10 mg PO DAILY [facility] Last Admin: 07/05/21 08:46 Dose: 10 mg Documented by: Amlodipine Besylate (Amlodipine 5 Mg Tab) 5 mg PO DAILY [facility] Last Admin: 07/08/21 08:20 Dose: 5 mg Documented by: Apixaban (Apixaban 5 Mg Tab) 5 mg PO BID [facility] Last Admin: 07/08/21 08:21 Dose: 5 mg Documented by: Azithromycin (Azithromycin 250 Mg Tab) 500 mg PO DAILY [facility] Last Admin: 07/07/21 08:35 Dose: 500 mg Documented by: Cholecalciferol (Cholecalciferol (Vitamin D3) 25 Mcg Tab) 25 mcg PO DAILY [facility] Last Admin: 07/08/21 08:20 Dose: 25 mcg Documented by: Dexamethasone (Dexamethasone 4 Mg Tab) 6 mg PO DAILY [facility] Last Admin: 07/08/21 08:21 Dose: 6 mg Documented by: Enoxaparin Sodium (Enoxaparin 40 Mg/0.4 Ml Syringe) 40 mg SUBCUT DAILY [facility] Last Admin: 07/04/21 18:50 Dose: Not Given Documented by: Fluticasone Propionate (Fluticasone Propionate Nasal [place] 16 Gm Bottle) 0 gm WYATT DAILY [facility] Last Admin: 07/08/21 10:49 Dose: Not Given Documented by: Folic Acid (Folic Acid 1 Mg Tab) 1 mg PO DAILY [facility] Last Admin: 07/08/21 08:20 Dose: 1 mg Documented by: Furosemide (Furosemide 80 Mg Tab) 80 mg PO DAILY [facility] Last Admin: 07/05/21 08:47 Dose: Not Given Documented by: Furosemide (Furosemide 80 Mg Tab) 80 mg PO DAILY PRN PRN Reason: Edema Furosemide (Furosemide 40 Mg Tab) 40 mg PO DAILY PRN PRN Reason: Edema Guaifenesin (Guaifenesin 100 Mg/5 Ml Soln 10 Ml Ud Cup) 200 mg PO Q6H PRN PRN Reason: Cough Last Admin: 07/08/21 06:33 Dose: 200 mg Documented by: Hydralazine HCl (Hydralazine 20 Mg/Ml Sdv) 10 mg IVPUSH Q4H PRN PRN Reason: Hypertension Promethazine HCl 12.5 mg/ (Sodium Chloride) 50.5 mls @ 100 mls/hr IV Q6H PRN PRN Reason: Nausea/Vomiting Remdesivir 200 mg/ Sodium (Chloride) 250 mls @ 250 mls/hr IV ONETIME ONE Stop: 07/04/21 17:29 Last Admin: 07/04/21 18:06 Dose: 250 mls/hr Documented by: Remdesivir 100 mg/ Sodium (Chloride) 100 mls @ 100 mls/hr IV Q24H [facility] Stop: 07/08/21 17:29 Last Admin: 07/07/21 16:41 Dose: 100 mls/hr Documented by: Ceftriaxone Sodium 2 gm/ (Sodium Chloride) 100 mls @ 200 mls/hr IV Q24H [facility] Stop: 07/08/21 17:29 Last Admin: 07/07/21 16:46 Dose: 200 mls/hr Documented by: Ceftriaxone Sodium 2 gm/ (Sodium Chloride) 100 mls @ 200 mls/hr IV ONETIME ONE Stop: 07/08/21 09:29 Last Admin: 07/08/21 10:49 Dose: Not Given Documented by: Remdesivir 100 mg/ Sodium (Chloride) 100 mls @ 100 mls/hr IV ONETIME ONE Stop: 07/08/21 10:59 Last Admin: 07/08/21 10:49 Dose: Not Given Documented by: Insulin Glargine (Insulin Glarg,Human.Rec.Analog 100 Unit/Ml) 40 unit SUBCUT BEDTIME [facility] Last Admin: 07/04/21 21:24 Dose: Not Given Documented by: Insulin Glargine (Insulin Glarg,Human.Rec.Analog 100 Unit/Ml) 36 unit SUBCUT 2100 [facility] Last Admin: 07/07/21 20:58 Dose: 36 unit Documented by: Insulin Human Lispro (Insulin Lispro 100 Unit/Ml 10 Ml Vial) 0 unit SUBCUT QIDACANDBED [facility]; Protocol Last Admin: 07/08/21 12:41 Dose: Not Given Documented by: Isosorbide Mononitrate (Isosorbide Mononitrate 60 Mg Tab.Er) 60 mg PO DAILY [facility] Last Admin: 07/08/21 08:21 Dose: 60 mg Documented by: Melatonin (Melatonin 3 Mg Tab) 3 mg PO BEDTIME [facility] Last Admin: 07/07/21 20:59 Dose: 3 mg Documented by: Metoprolol Tartrate (Metoprolol Tartrate 25 Mg Tab) 12.5 mg PO Q12H [facility] Last Admin: 07/08/21 06:32 Dose: 12.5 mg Documented by: Mometasone Furoate/Formoterol Fumar (Formoterol/Mometasone 200-5 Mcg 8.8 Gm Inhaler) 2 puff IH BID [facility] Last Admin: 07/08/21 09:50 Dose: 2 puff Documented by: Montelukast Sodium (Montelukast 10 Mg Tab) 10 mg PO BEDTIME [facility] Last Admin: 07/07/21 20:59 Dose: 10 mg Documented by: Morphine Sulfate (Morphine 2 Mg/Ml Syringe) 2 mg IVPUSH Q4H PRN PRN Reason: Pain (severe 7-10) Stop: 07/05/21 16:10 Tobramycin/Lotepred Etab [Zylet Eye Drops] 10 Ml Drops * *Ptom 1 drop EYEBOTH DAILY PRN PRN Reason: Dry Eyes Oxycodone HCl (Oxycodone 5 Mg Tab) 5 mg PO Q6H PRN PRN Reason: Pain (moderate 4-6) Last Admin: 07/07/21 15:08 Dose: 5 mg Documented by: Pantoprazole Sodium (Pantoprazole 40 Mg Tab.Cr) 40 mg PO DAILY@0700 [facility] Last Admin: 07/08/21 06:32 Dose: 40 mg Documented by: Potassium Chloride (Potassium Chloride 20 Meq Tab.Er) 40 meq PO ONETIME ONE Stop: 07/07/21 10:26 Last Admin: 07/07/21 11:54 Dose: 40 meq Documented by: Simvastatin (Simvastatin 40 Mg Tab) 40 mg PO BEDTIME [facility] Last Admin: 07/07/21 20:59 Dose: 40 mg Documented by: Trazodone HCl (Trazodone 50 Mg Tab) 50 mg PO BEDTIME [facility] Last Admin: 07/07/21 20:59 Dose: 50 mg Documented by: Zinc Sulfate (Zinc Sulfate 220 Mg Cap) 220 mg PO DAILY [facility] Last Admin: 07/08/21 08:21 Dose: 220 mg Documented by: - Patient Data Lab Results Last 24 hrs: Laboratory Results - last 24 hr 07/07/21 07/08/21 07/08/21 Range/Units 20:55 04:22 05:33 WBC 8.49 (4.23-9.07) K/mm3 RBC 4.64 (4.63-6.08) M/mm3 Hgb 14.6 (13.7-17.5) gm/dl Hct 44.4 (40.1-51.0) % MCV 95.7 H (79.0-92.2) fl MCH 31.5 (25.7-32.2) pg MCHC 32.9 (32.2-35.5) g/dl RDW Std Deviation 50.0 H (35.1-43.9) fL Plt Count 146 L (163-337) K/mm3 MPV 10.9 (9.4-12.3) fl Neut % (Auto) 78.9 H (34.0-67.9) % Lymph % (Auto) 11.0 L (21.8-53.1) % [place] % (Auto) 9.7 (5.3-12.2) % Eos % (Auto) 0 L (0.8-7.0) Baso % (Auto) 0.0 L (0.1-1.2) % Neut # (Auto) 6.71 H (1.78-5.38) K/mm3 Lymph # (Auto) 0.93 L (1.32-3.57) K/mm3 [place] # (Auto) 0.82 (0.30-0.82) K/mm3 Eos # (Auto) 0.00 L (0.04-0.54) K/mm3 Baso # (Auto) 0.00 L (0.01-0.08) K/mm3 Sodium (136-145) mEq/L Potassium (3.5-5.1) mEq/L Chloride (98-107) mEq/L Carbon Dioxide (21-32) mEq/L Anion Gap (5-15) BUN (7-18) mg/dL Creatinine (0.7-1.3) mg/dL Est Cr Clr Drug Dosing mL/min Estimated GFR (MDRD) (>60) mL/min BUN/Creatinine Ratio (14-18) Glucose (70-99) mg/dL POC Glucose 290 H 144 H (70-99) mg/dL Calcium (8.5-10.1) mg/dL Total Bilirubin (0.2-1.0) mg/dL AST (15-37) U/L ALT (16-63) U/L Alkaline Phosphatase (46-116) U/L C-Reactive Protein (<1.0) mg/dL Total Protein (6.4-8.2) g/dl Albumin (3.4-5.0) g/dl Globulin gm/dL Albumin/Globulin Ratio (1-2) 07/08/ Range/Units 05:33 WBC (4.23-9.07) K/mm3 RBC (4.63-6.08) M/mm3 Hgb (13.7-17.5) gm/dl Hct (40.1-51.0) % MCV (79.0-92.2) fl MCH (25.7-32.2) pg MCHC (32.2-35.5) g/dl RDW Std Deviation (35.1-43.9) fL Plt Count (163-337) K/mm3 MPV (9.4-12.3) fl Neut % (Auto) (34.0-67.9) % Lymph % (Auto) (21.8-53.1) % [place] % (Auto) (5.3-12.2) % Eos % (Auto) (0.8-7.0) Baso % (Auto) (0.1-1.2) % Neut # (Auto) (1.78-5.38) K/mm3 Lymph # (Auto) (1.32-3.57) K/mm3 [place] # (Auto) (0.30-0.82) K/mm3 Eos # (Auto) (0.04-0.54) K/mm3 Baso # (Auto) (0.01-0.08) K/mm3 Sodium 140 (136-145) mEq/L Potassium 3.9 (3.5-5.1) mEq/L Chloride 107 (98-107) mEq/L Carbon Dioxide 25 (21-32) mEq/L Anion Gap 11.9 (5-15) BUN 22 H (7-18) mg/dL Creatinine 0.8 (0.7-1.3) mg/dL Est Cr Clr Drug Dosing 88.78 mL/min Estimated GFR (MDRD) > 60 (>60) mL/min BUN/Creatinine Ratio 27.5 H (14-18) Glucose 149 H (70-99) mg/dL POC Glucose (70-99) mg/dL Calcium 8.3 L (8.5-10.1) mg/dL Total Bilirubin 0.4 (0.2-1.0) mg/dL AST 18 (15-37) U/L ALT 35 (16-63) U/L Alkaline Phosphatase 69 (46-116) U/L C-Reactive Protein 5.8 H* (<1.0) mg/dL Total Protein 6.2 L (6.4-8.2) g/dl Albumin 2.1 L (3.4-5.0) g/dl Globulin 4.1 gm/dL Albumin/Globulin Ratio 0.5 L (1-2) Result Diagrams: 07/08/21 05:33 07/08/21 05:33 Mushtaq Results Last 24 hrs: Microbiology 07/04/21 21:00 Respiratory Culture - Final Sputum - Expectorated Gram Stain - Final Sepsis Event Note - Focused Exam Vital Signs: Vital Signs Temp Pulse BP Pulse Ox Pulse Ox 07/08/21 09:00 92 L 07/08/21 08:20 140/83 07/08/21 08:18 36.4 C 54 L 140/83 94 L 07/08/21 06:32 86 150/69 H - Problem List & Annotations (1) Pneumonia due to COVID-19 virus SNOMED Code(s): 841095786674093792 Code(s): U07.1 - COVID-19; J12.82 - PNEUMONIA DUE TO CORONAVIRUS DISEASE 2019 Status: Resolved Priority: High (2) COPD (chronic obstructive pulmonary disease) SNOMED Code(s): 51371213 Code(s): J44.9 - CHRONIC OBSTRUCTIVE PULMONARY DISEASE, UNSPECIFIED Status: Chronic Priority: Medium Qualifiers: COPD type: unspecified COPD Qualified Code(s): J44.9 - Chronic obstructive pulmonary disease, unspecified - Free Text/Narrative Note: I have seen and examined the patient independently of Noam Cruz PA-C. I have discussed the case with him and reviewed and agree with the plan of care as outlined by him. Please see orders.
[2021-07-07] MEDS: Formoterol/Mometasone 200-5 MCG 8.8 GM Inhaler IH SCH ×2 (08:17→20:34)
[2021-07-07] MEDS: Albuterol 6.7 GM Inhaler INH PRN ×4 (08:18→20:34)
[2021-07-07] MEDS: Insulin Lispro 100 UNIT/ML 10 ML Vial SUBCUT SCH ×4 (08:32→21:18)
[2021-07-07] MEDS: Zinc Sulfate 220 MG Cap PO SCH (08:33)
[2021-07-07] MEDS: Apixaban 5 MG Tab PO SCH ×2 (08:34→20:59)
[2021-07-07] MEDS: Cholecalciferol (Vitamin D3) 25 MCG Tab PO SCH (08:34)
[2021-07-07] MEDS: amLODIPine 5 MG Tab PO SCH (08:34)
[2021-07-07] MEDS: Isosorbide Mononitrate 60 MG Tab.ER PO SCH (08:34)
[2021-07-07] MEDS: Dexamethasone 4 MG Tab PO SCH (08:34)
[2021-07-07] MEDS: Folic Acid 1 MG Tab PO SCH (08:34)
[2021-07-07] MEDS: Fluticasone Propionate Nasal Spray 16 GM Bottle NAS SCH (08:35)
[2021-07-07] MEDS: Azithromycin 250 MG Tab PO SCH (08:35)
[2021-07-07] MEDS: guaiFENesin 100 MG/5 ML Soln 10 ML UD Cup PO PRN ×2 (09:53→21:18)
[2021-07-07] MEDS ORDERED: Potassium Chloride 20 MEQ Tab.ER PO ONE (10:25)
[2021-07-07] MEDS ORDERED: Furosemide 40 MG Tab PO PRN (15:02)
[2021-07-07] MEDS: oxyCODONE 5 MG Tab PO PRN (15:08)
[2021-07-07] MEDS: REMDESIVIR 100 MG in Sodium Chloride 0.9% 100 ML IV SCH (16:41)
[2021-07-07] MEDS: cefTRIAXone 2 GM in Sodium Chloride 0.9% 100 ML IV SCH (16:46)
[2021-07-07] MEDS: Insulin Glarg,Human.Rec.Analog 100 Unit/ML SUBCUT SCH (20:58)
[2021-07-07] MEDS: Simvastatin 40 MG Tab PO SCH (20:59)
[2021-07-07] MEDS: traZODone 50 MG Tab PO SCH (20:59)
[2021-07-07] MEDS: Melatonin 3 MG Tab PO SCH (20:59)
[2021-07-07] MEDS: Montelukast 10 MG Tab PO SCH (20:59)
[2021-07-08] MEDS: Acetaminophen 325 MG Tab PO PRN (06:31)
[2021-07-08] MEDS: Metoprolol Tartrate 25 MG Tab PO SCH (06:32)
[2021-07-08] MEDS: Pantoprazole 40 MG Tab.CR PO SCH (06:32)
[2021-07-08] MEDS: guaiFENesin 100 MG/5 ML Soln 10 ML UD Cup PO PRN (06:33)
[2021-07-08] MEDS: Insulin Lispro 100 UNIT/ML 10 ML Vial SUBCUT SCH ×2 (08:15→12:41)
[2021-07-08] MEDS: amLODIPine 5 MG Tab PO SCH (08:20)
[2021-07-08] MEDS: Cholecalciferol (Vitamin D3) 25 MCG Tab PO SCH (08:20)
[2021-07-08] MEDS: Folic Acid 1 MG Tab PO SCH (08:20)
--- NOTE | 2021-07-08 08:20 | PCM.DCSUM1 ---
Discharge Summary - Hospital Course HPI Initial Comments: The patient was admitted with acute on chronic respiratory failure and COVID-19 pneumonia. Diagnosis: Stroke: No - Discharge Data Discharge Date: 07/08/21 Discharge Disposition: Home, Self-Care 01 Condition: Fair - Referral to Home Health Primary Care Physician: Radha Copeland NP - Discharge Diagnosis/Problem(s) (1) Pneumonia due to COVID-19 virus SNOMED Code(s): 663832839280168555 ICD Code: U07.1 - COVID-19; J12.82 - PNEUMONIA DUE TO CORONAVIRUS DISEASE 2019 Status: Resolved Priority: High Current Visit: Yes (2) COPD (chronic obstructive pulmonary disease) SNOMED Code(s): 26903833 ICD Code: J44.9 - CHRONIC OBSTRUCTIVE PULMONARY DISEASE, UNSPECIFIED Status: Chronic Priority: Medium Current Visit: Yes Qualifiers: COPD type: unspecified COPD Qualified Code(s): J44.9 - Chronic obstructive pulmonary disease, unspecified - Patient Summary/Data Consults: Consultations 07/06/21 11:03 Consult to Physical Therapy [PT Evaluation and Treatment] [CONS] Routine 07/06/21 11:04 Consult to Occupational Therapy [OT Evaluation and Treatment] [CONS] Routine Hospital Course: The patient is a 75-year-old gentleman who was admitted to acute hospitalization on July 04, 2021 due to hypoxia. The patient had a positive Covid test on June 20, 2021 and he had worsening shortness of breath. The patient was admitted secondary to requiring high flow oxygen. Because of the patient's hypoxia he was started on remdesivir 250 mg in the emergency department followed by 4 doses of 100 mg remdesivir while in hospitalization. Patient had tolerated this well. The patient had been started on high-dose steroids and his blood sugars were controlled with the use of insulin and sliding scale. By day of discharge the patient had been back to his normal 2 L of oxygen and he had been recommended to continue steroids and his home oxygen. The patient had been discharged on codeine with guaifenesin 5 mL every 6 hours as needed for cough. By day of discharge the patient said that he felt like he could go home safely. He has been recommended to follow-up with his primary care physician. The patient also has been tolerating his diet and he is recommended to have his diabetic diet as tolerated. The patient is also to have activity as tolerated. The patient has been hemodynamically stable and he is discharged from acute hospitalization with the recommendations listed above. - Patient Instructions Diet: Usual Diet as Tolerated, Diabetic Diet Activity: As Tolerated - Discharge Plan *PRESCRIPTION DRUG MONITORING PROGRAM REVIEWED*: No *COPY OF PRESCRIPTION DRUG MONITORING REPORT IN PATIENT NEHEMIAH: No Prescriptions/Med Rec: Codeine/guaiFENesin [Robitussin AC] 5 ml PO Q6HR PRN #118 liquid PRN Reason: Cough Home Medications: Home Meds Acetaminophen 500 mg PO Q6H PRN 02/08/20 [History] Albuterol [Proventil HFA] 2 puff INH Q4H PRN 02/08/20 [History] Apixaban [Eliquis] 5 mg PO BID 02/08/20 [History] Folic Acid 1 mg PO DAILY 02/08/20 [History] Furosemide [Lasix] 40 mg PO DAILY PRN 02/08/20 [History] Insulin Glarg,Human.Rec.Analog [Lantus Solostar] 47 units SUBCUT BEDTIME 02/08/20 [History] Isosorbide Mononitrate [Isosorbide Mononitrate ER] 60 mg PO DAILY 02/08/20 [History] Losartan [Cozaar] 50 mg PO DAILY 02/08/20 [History] Montelukast [Singulair] 10 mg PO BEDTIME 02/08/20 [History] Omeprazole 20 mg PO DAILY #30 capsule. 02/08/20 [Rx] Simvastatin [Zocor] 40 mg PO BEDTIME 02/08/20 [History] amLODIPine [Norvasc] 10 mg PO DAILY 02/08/20 [History] carvediloL [Carvedilol] 25 mg PO BID 02/08/20 [History] metFORMIN [Glucophage] 1,000 mg PO BIDMEALS 02/08/20 [History] traZODone HCl [Trazodone HCl] 75 mg PO BEDTIME 02/08/20 [History] Albuterol Sulfate 1 vial INH Q4H PRN 07/04/21 [History] Alogliptin Benzoate [Alogliptin] 25 mg PO DAILY 07/04/21 [History] Budesonide/Formoterol [Symbicort 160-4.5 MCG] 2 puff INH BID 07/04/21 [History] Empagliflozin [Jardiance] 25 mg PO DAILY 07/04/21 [History] Fluticasone Propionate [Flovent] 1 spray NASBOTH DAILY 07/04/21 [History] Hydrocodone/Acetaminophen [HYDROcodone-Acetaminophen 5-325 MG] 1 tab PO BID PRN 07/04/21 [History] Tobramycin/Lotepred Etab [Zylet Eye Drops] 1 drop EYEBOTH DAILY PRN 07/04/21 [History] predniSONE [Prednisone] 20 mg PO BID 07/04/21 [History] Codeine/guaiFENesin [Robitussin AC] 5 ml PO Q6HR PRN #118 liquid 07/08/21 [Rx] Oxygen Therapy Mode: Nasal Cannula Oxygen Flow Rate (L/min): 2 Patient Handouts: COVID-19 Frequently Asked Questions, COVID-19, 10 Things You Can Do to Manage Your COVID-19 Symptoms at Home - [facility] (04/28/2021), Home Oxygen Use, Adult Referrals: Radha Copeland [employer] [Primary Care Provider] - 07/13/21 11:00 am (Please be there to register by 10:40 am.) - Discharge Summary/Plan Comment DC Time >30 min.: Yes Total # of Minutes for Discharge Time: 40 - General Info Date of Service: 07/08/21 Admission Dx/Problem (Free Text: Admission Diagnosis/Problem Admission Diagnosis/Problem Hypoxia Subjective Update: The patient says that he is feeling better. He feels like he can safely go home. He has oxygen at home. Patient also has previously prescribed steroids at home as well. Functional Status: Reports: Pain Controlled, Tolerating Diet - Review of Systems General: Reports: No Symptoms HEENT: Reports: No Symptoms Pulmonary: Reports: Shortness of Breath (The patient says he is at his baseline shortness of breath) Cardiovascular: Reports: No Symptoms Gastrointestinal: Reports: No Symptoms Genitourinary: Reports: No Symptoms Musculoskeletal: Reports: No Symptoms Skin: Reports: No Symptoms Neurological: Reports: No Symptoms Psychiatric: Reports: No Symptoms - Patient Data Vitals - Most Recent: Last Vital Signs Temp 36.3 C 07/08/21 04:26 Pulse 86 07/08/21 06:32 Resp 20 07/07/21 20:59 BP 150/69 H 09/25/21 06:32 Pulse Ox 90 L 07/08/21 04:26 Weight - Most Recent: 89.539 kg I&O - Last 24 hours: Intake & Output 07/07/21 07/08/21 07/08/21 22:59 06:59 14:59 Intake Total 1290 1000 Output Total 300 Balance 990 1000 Lab Results - Last 24 hrs: Laboratory Results - last 24 hr 07/07/21 07/07/21 07/07/21 Range/Units 11:03 16:23 20:55 WBC (4.23-9.07) K/mm3 RBC (4.63-6.08) M/mm3 Hgb (13.7-17.5) gm/dl Hct (40.1-51.0) % MCV (79.0-92.2) fl MCH (25.7-32.2) pg MCHC (32.2-35.5) g/dl RDW Std Deviation (35.1-43.9) fL Plt Count (163-337) K/mm3 MPV (9.4-12.3) fl Neut % (Auto) (34.0-67.9) % Lymph % (Auto) (21.8-53.1) % [place] % (Auto) (5.3-12.2) % Eos % (Auto) (0.8-7.0) Baso % (Auto) (0.1-1.2) % Neut # (Auto) (1.78-5.38) K/mm3 Lymph # (Auto) (1.32-3.57) K/mm3 [place] # (Auto) (0.30-0.82) K/mm3 Eos # (Auto) (0.04-0.54) K/mm3 Baso # (Auto) (0.01-0.08) K/mm3 Sodium (136-145) mEq/L Potassium (3.5-5.1) mEq/L Chloride (98-107) mEq/L Carbon Dioxide (21-32) mEq/L Anion Gap (5-15) BUN (7-18) mg/dL Creatinine (0.7-1.3) mg/dL Est Cr Clr Drug Dosing mL/min Estimated GFR (MDRD) (>60) mL/min BUN/Creatinine Ratio (14-18) Glucose (70-99) mg/dL POC Glucose 207 H 293 H 290 H (70-99) mg/dL Calcium (8.5-10.1) mg/dL Total Bilirubin (0.2-1.0) mg/dL AST (15-37) U/L ALT (16-63) U/L Alkaline Phosphatase (46-116) U/L C-Reactive Protein (<1.0) mg/dL Total Protein (6.4-8.2) g/dl Albumin (3.4-5.0) g/dl Globulin gm/dL Albumin/Globulin Ratio (1-2) 07/08/21 07/08/21 07/08/21 Range/Units 04:22 05:33 05:33 WBC 8.49 (4.23-9.07) K/mm3 RBC 4.64 (4.63-6.08) M/mm3 Hgb 14.6 (13.7-17.5) gm/dl Hct 44.4 (40.1-51.0) % MCV 95.7 H (79.0-92.2) fl MCH 31.5 (25.7-32.2) pg MCHC 32.9 (32.2-35.5) g/dl RDW Std Deviation 50.0 H (35.1-43.9) fL Plt Count 146 L (163-337) K/mm3 MPV 10.9 (9.4-12.3) fl Neut % (Auto) 78.9 H (34.0-67.9) % Lymph % (Auto) 11.0 L (21.8-53.1) % [place] % (Auto) 9.7 (5.3-12.2) % Eos % (Auto) 0 L (0.8-7.0) Baso % (Auto) 0.0 L (0.1-1.2) % Neut # (Auto) 6.71 H (1.78-5.38) K/mm3 Lymph # (Auto) 0.93 L (1.32-3.57) K/mm3 [place] # (Auto) 0.82 (0.30-0.82) K/mm3 Eos # (Auto) 0.00 L (0.04-0.54) K/mm3 Baso # (Auto) 0.00 L (0.01-0.08) K/mm3 Sodium 140 (136-145) mEq/L Potassium 3.9 (3.5-5.1) mEq/L Chloride 107 (98-107) mEq/L Carbon Dioxide 25 (21-32) mEq/L Anion Gap 11.9 (5-15) BUN 22 H (7-18) mg/dL Creatinine 0.8 (0.7-1.3) mg/dL Est Cr Clr Drug Dosing 88.78 mL/min Estimated GFR (MDRD) > 60 (>60) mL/min BUN/Creatinine Ratio 27.5 H (14-18) Glucose 149 H (70-99) mg/dL POC Glucose 144 H (70-99) mg/dL Calcium 8.3 L (8.5-10.1) mg/dL Total Bilirubin 0.4 (0.2-1.0) mg/dL AST 18 (15-37) U/L ALT 35 (16-63) U/L Alkaline Phosphatase 69 (46-116) U/L C-Reactive Protein 5.8 H* (<1.0) mg/dL Total Protein 6.2 L (6.4-8.2) g/dl Albumin 2.1 L (3.4-5.0) g/dl Globulin 4.1 gm/dL Albumin/Globulin Ratio 0.5 L (1-2) TOD Results - Last 24 hrs: Microbiology 07/04/21 21:00 Respiratory Culture - Final Sputum - Expectorated Gram Stain - Final Med Orders - Current: Current Medications Acetaminophen (Acetaminophen 325 Mg Tab) 650 mg PO Q6H PRN PRN Reason: Pain (Mild 1-3)/fever Last Admin: 07/08/21 06:31 Dose: 650 mg Documented by: Albuterol (Albuterol 6.7 Gm Inhaler) 0 gm INH Q4H PRN PRN Reason: Shortness of Breath Last Admin: 07/07/21 20:34 Dose: 2 puff Documented by: Albuterol/Ipratropium (Albuterol/Ipratropium 3.0-0.5 Mg/3 Ml Neb Soln) 3 ml NEB Q4H PRN PRN Reason: Shortness Of Breath/wheezing Alogliptin Benzoate (Alogliptin 25 Mg Tab) 25 mg PO DAILY [facility] Last Admin: 09/24/21 08:34 Dose: 25 mg Documented by: Amlodipine Besylate (Amlodipine 5 Mg Tab) 5 mg PO DAILY [facility] Last Admin: 07/07/21 08:34 Dose: 5 mg Documented by: Apixaban (Apixaban 5 Mg Tab) 5 mg PO BID [facility] Last Admin: 07/07/21 20:59 Dose: 5 mg Documented by: Cholecalciferol (Cholecalciferol (Vitamin D3) 25 Mcg Tab) 25 mcg PO DAILY [facility] Last Admin: 07/07/21 08:34 Dose: 25 mcg Documented by: Dexamethasone (Dexamethasone 4 Mg Tab) 6 mg PO DAILY [facility] Last Admin: 07/07/21 08:34 Dose: 6 mg Documented by: Fluticasone Propionate (Fluticasone Propionate Nasal [place] 16 Gm Bottle) 0 gm WYATT DAILY [facility] Last Admin: 07/07/21 08:35 Dose: 2 spray Documented by: Folic Acid (Folic Acid 1 Mg Tab) 1 mg PO DAILY [facility] Last Admin: 07/07/21 08:34 Dose: 1 mg Documented by: Furosemide (Furosemide 40 Mg Tab) 40 mg PO DAILY PRN PRN Reason: Edema Guaifenesin (Guaifenesin 100 Mg/5 Ml Soln 10 Ml Ud Cup) 200 mg PO Q6H PRN PRN Reason: Cough Last Admin: 07/08/21 06:33 Dose: 200 mg Documented by: Hydralazine HCl (Hydralazine 20 Mg/Ml Sdv) 10 mg IVPUSH Q4H PRN PRN Reason: Hypertension Promethazine HCl 12.5 mg/ (Sodium Chloride) 50.5 mls @ 100 mls/hr IV Q6H PRN PRN Reason: Nausea/Vomiting Remdesivir 100 mg/ Sodium (Chloride) 100 mls @ 100 mls/hr IV Q24H [facility] Stop: 07/08/21 17:29 Last Admin: 07/07/21 16:41 Dose: 100 mls/hr Documented by: Ceftriaxone Sodium 2 gm/ (Sodium Chloride) 100 mls @ 200 mls/hr IV Q24H [facility] Stop: 07/08/21 17:29 Last Admin: 07/07/21 16:46 Dose: 200 mls/hr Documented by: Insulin Glargine (Insulin Glarg,Human.Rec.Analog 100 Unit/Ml) 36 unit SUBCUT 2100 [facility] Last Admin: 07/07/21 20:58 Dose: 36 unit Documented by: Insulin Human Lispro (Insulin Lispro 100 Unit/Ml 10 Ml Vial) 0 unit SUBCUT QIDACANDBED [facility]; Protocol Last Admin: 07/07/21 21:18 Dose: 6 unit Documented by: Isosorbide Mononitrate (Isosorbide Mononitrate 60 Mg Tab.Er) 60 mg PO DAILY [facility] Last Admin: 07/07/21 08:34 Dose: 60 mg Documented by: Melatonin (Melatonin 3 Mg Tab) 3 mg PO BEDTIME [facility] Last Admin: 07/07/21 20:59 Dose: 3 mg Documented by: Metoprolol Tartrate (Metoprolol Tartrate 25 Mg Tab) 12.5 mg PO Q12H [facility] Last Admin: 07/08/21 06:32 Dose: 12.5 mg Documented by: Mometasone Furoate/Formoterol Fumar (Formoterol/Mometasone 200-5 Mcg 8.8 Gm Inhaler) 2 puff IH BID [facility] Last Admin: 07/07/21 20:34 Dose: 2 puff Documented by: Montelukast Sodium (Montelukast 10 Mg Tab) 10 mg PO BEDTIME [facility] Last Admin: 07/07/21 20:59 Dose: 10 mg Documented by: Tobramycin/Lotepred Etab [Zylet Eye Drops] 10 Ml Drops * *Ptom 1 drop EYEBOTH DAILY PRN PRN Reason: Dry Eyes Oxycodone HCl (Oxycodone 5 Mg Tab) 5 mg PO Q6H PRN PRN Reason: Pain (moderate 4-6) Last Admin: 07/07/21 15:08 Dose: 5 mg Documented by: Pantoprazole Sodium (Pantoprazole 40 Mg Tab.Cr) 40 mg PO DAILY@0700 [facility] Last Admin: 07/08/21 06:32 Dose: 40 mg Documented by: Simvastatin (Simvastatin 40 Mg Tab) 40 mg PO BEDTIME [facility] Last Admin: 07/07/21 20:59 Dose: 40 mg Documented by: Trazodone HCl (Trazodone 50 Mg Tab) 50 mg PO BEDTIME [facility] Last Admin: 07/07/21 20:59 Dose: 50 mg Documented by: Zinc Sulfate (Zinc Sulfate 220 Mg Cap) 220 mg PO DAILY [facility] Last Admin: 07/07/21 08:33 Dose: 220 mg Documented by: Discontinued Medications Amlodipine Besylate (Amlodipine 10 Mg Tab) 10 mg PO DAILY [facility] Last Admin: 07/05/21 08:46 Dose: 10 mg Documented by: Azithromycin (Azithromycin 250 Mg Tab) 500 mg PO DAILY [facility] Last Admin: 07/07/21 08:35 Dose: 500 mg Documented by: Enoxaparin Sodium (Enoxaparin 40 Mg/0.4 Ml Syringe) 40 mg SUBCUT DAILY [facility] Last Admin: 07/04/21 18:50 Dose: Not Given Documented by: Furosemide (Furosemide 80 Mg Tab) 80 mg PO DAILY [facility] Last Admin: 07/05/21 08:47 Dose: Not Given Documented by: Furosemide (Furosemide 80 Mg Tab) 80 mg PO DAILY PRN PRN Reason: Edema Remdesivir 200 mg/ Sodium (Chloride) 250 mls @ 250 mls/hr IV ONETIME ONE Stop: 07/04/21 17:29 Last Admin: 07/04/21 18:06 Dose: 250 mls/hr Documented by: Insulin Glargine (Insulin Glarg,Human.Rec.Analog 100 Unit/Ml) 40 unit SUBCUT BEDTIME [facility] Last Admin: 07/04/21 21:24 Dose: Not Given Documented by: Morphine Sulfate (Morphine 2 Mg/Ml Syringe) 2 mg IVPUSH Q4H PRN PRN Reason: Pain (severe 7-10) Stop: 07/05/21 16:10 Potassium Chloride (Potassium Chloride 20 Meq Tab.Er) 40 meq PO ONETIME ONE Stop: 07/07/21 10:26 Last Admin: 07/07/21 11:54 Dose: 40 meq Documented by: - Exam Quality Assessment: Reports: Supplemental Oxygen, DVT Prophylaxis (Apixaban) General: Reports: Alert, Oriented, Cooperative HEENT: Reports: Pupils Equal, Pupils Reactive, EOMI Neck: Reports: Supple, Trachea Midline Lungs: Reports: Clear to Auscultation, Normal Respiratory Effort Cardiovascular: Reports: Regular Rate, Irregular Rhythm (Chronic atrial fibrillation) GI/Abdominal Exam: Normal Bowel Sounds, Soft, Non-Tender, No Distention (Male) Exam: Deferred Rectal (Males) Exam: Deferred Back Exam: Reports: Normal Inspection, Full Range of Motion Extremities: Normal Inspection, Normal Range of Motion, No Pedal Edema Skin: Reports: Warm, Dry, Intact Neurological: Reports: No New Focal Deficit, Normal Gait, Normal Speech, Normal Tone Psy/Mental Status: Reports: Alert, Normal Affect, Normal Mood
[2021-07-08] MEDS: Apixaban 5 MG Tab PO SCH (08:21)
[2021-07-08] MEDS: Zinc Sulfate 220 MG Cap PO SCH (08:21)
[2021-07-08] MEDS: Dexamethasone 4 MG Tab PO SCH (08:21)
[2021-07-08] MEDS: Isosorbide Mononitrate 60 MG Tab.ER PO SCH (08:21)
[2021-07-08 08:32] VITALS: BP 140/83
[2021-07-08] MEDS ORDERED: cefTRIAXone 2 GM in Sodium Chloride 0.9% 100 ML IV ONE (09:00)
[2021-07-08] MEDS: Formoterol/Mometasone 200-5 MCG 8.8 GM Inhaler IH SCH (09:50)
[2021-07-08] MEDS ORDERED: REMDESIVIR 100 MG in Sodium Chloride 0.9% 100 ML IV ONE (10:00)
[2021-07-08] MEDS: Fluticasone Propionate Nasal Spray 16 GM Bottle NAS SCH (10:49)
[2021-07-08 12:08] VITALS: PULSE 54
--- NOTE | 2021-07-10 12:34 | PCM.EKG ---
#1 Interpretation EKG Date: 07/04/21 Time: 17:42 Rhythm: NSR Rate (Beats/Min): 80 [place]: Normal P-Wave: Present QRS: Normal ST-T: Normal QT: Normal (Not ordered by me. Left atrial enlargement.)
== END 2021-07-08 12:20 | disposition home or self-care (01) | DRG 177 ==
LOC: JD.MS 15:19
PROVIDERS: ADMIT Internal Medicine; ATTEND Internal Medicine
PROC: XW033E5 Introduction of Remdesivir Anti-infective into Peripheral Vein, Percutaneous Approach, New Technology Group 5 (ICD-10-PCS; principal; 2021-07-04)
PROC: 3E0DX3Z Introduction of Anti-inflammatory into Mouth and Pharynx, External Approach (ICD-10-PCS; 2021-07-05)
DX: U07.1 COVID-19 (principal); J12.82 Pneumonia due to coronavirus disease 2019; J96.21 Acute and chronic respiratory failure with hypoxia; J44.0 Chronic obstructive pulmonary disease with (acute) lower respiratory infection; I48.91 Unspecified atrial fibrillation; I11.0 Hypertensive heart disease with heart failure; I50.9 Heart failure, unspecified; E78.00 Pure hypercholesterolemia, unspecified; H54.7 Unspecified visual loss; M19.90 Unspecified osteoarthritis, unspecified site; E66.9 Obesity, unspecified; D72.829 Elevated white blood cell count, unspecified; T38.0X5A Adverse effect of glucocorticoids and synthetic analogues, initial encounter; D69.6 Thrombocytopenia, unspecified; E87.6 Hypokalemia; Z79.4 Long term (current) use of insulin; Z79.899 Other long term (current) drug therapy; Z79.01 Long term (current) use of anticoagulants; Z95.5 Presence of coronary angioplasty implant and graft; Z99.81 Dependence on supplemental oxygen; Z68.26 Body mass index [BMI] 26.0-26.9, adult
CPT/HCPCS: 36415; 80053; 81001; 82947; 83735; 83880; 84100; 84484; 85025; 85379; 85610; 85730; 86140; 87040; 87070; 87205; 93005; 94640; 94667; 94668; 94762; 97161-GP; A9270-GY; J0696; J1815-GY; J7050; J8540

== ENCOUNTER 2022-08-12 22:26 | Emergency (ER) | payer MEDICARE, BC ==
[2022-08-12] MEDS ORDERED: Metoprolol Tartrate 50 MG Tab PO ONE (22:51)
[2022-08-12 23:52] VITALS: BP 120/88; PULSE 94
== END 2022-08-13 01:25 | disposition home or self-care (01) ==
LOC: JD.ED 22:26
DX: R04.0 Epistaxis (principal); I10 Essential (primary) hypertension; I48.91 Unspecified atrial fibrillation; I25.10 Atherosclerotic heart disease of native coronary artery without angina pectoris; E78.00 Pure hypercholesterolemia, unspecified; J44.9 Chronic obstructive pulmonary disease, unspecified; K21.9 Gastro-esophageal reflux disease without esophagitis; M19.90 Unspecified osteoarthritis, unspecified site; E11.9 Type 2 diabetes mellitus without complications; E66.9 Obesity, unspecified; Z68.29 Body mass index [BMI] 29.0-29.9, adult; Z86.711 Personal history of pulmonary embolism; Z79.01 Long term (current) use of anticoagulants; Z79.4 Long term (current) use of insulin; Z79.899 Other long term (current) drug therapy
CPT/HCPCS: 30901; 99283; A9270

== ENCOUNTER 2022-11-18 20:51 | Emergency (ER) | payer MEDICARE, BC ==
[2022-11-18 21:56] VITALS: BP 172/104; PULSE 71
== END 2022-11-18 21:36 | disposition home or self-care (01) ==
LOC: JD.ED 20:51
DX: I10 Essential (primary) hypertension (principal); K21.9 Gastro-esophageal reflux disease without esophagitis; E78.00 Pure hypercholesterolemia, unspecified; J45.909 Unspecified asthma, uncomplicated; M19.90 Unspecified osteoarthritis, unspecified site; I48.91 Unspecified atrial fibrillation; Z86.711 Personal history of pulmonary embolism; E11.9 Type 2 diabetes mellitus without complications; E66.9 Obesity, unspecified; Z68.30 Body mass index [BMI] 30.0-30.9, adult; Z87.891 Personal history of nicotine dependence; Z79.4 Long term (current) use of insulin; Z79.899 Other long term (current) drug therapy
CPT/HCPCS: 99283

== ENCOUNTER 2023-04-22 18:49 | Emergency (ER) | payer MEDICARE, BC ==
[2023-04-22 19:03] VITALS: BP 159/98; PULSE 93
[2023-04-22] MEDS ORDERED: Sodium Chloride 0.9% 10 ML Syringe FLUSH PRN (19:12)
[2023-04-22] MEDS ORDERED: Aspirin 81 MG Tab.Chew PO ONE (19:12)
[2023-04-22] MEDS ORDERED: Nitroglycerin 0.4 MG Tab.SL SL ONE (19:12)
[2023-04-22 19:20] LABS: BASOPHILS ABSOLUTE AUTO 0.03 K/mm3 (0.01-0.08); BASOPHILS PERCENT AUTO 0.2 % (0.1-1.2); EOSINOPHILS ABSOLUTE AUTO 0.19 K/mm3 (0.04-0.54); EOSINOPHILS PERCENT AUTO 1.3 (0.8-7.0); HEMATOCRIT 55.1 % (40.1-51.0); HEMOGLOBIN 18.1 gm/dl (13.7-17.5); IMMATURE GRAN ABSOLUTE AUTO 0.08 K/mm3 (0.00-0.10); IMMATURE GRAN PERCENT AUTO 0.5 % (<=1.0); LYMPHOCYTES ABSOLUTE AUTO 1.95 K/mm3 (1.32-3.57); LYMPHOCYTES PERCENT AUTO 13.2 % (21.8-53.1); MEAN CORPUSCULAR HEMOGLOBIN 31.9 pg (25.7-32.2); MEAN CORPUSCULAR HGB CONC 32.8 g/dl (32.2-35.5); MEAN CORPUSCULAR VOLUME 97.2 fl (79.0-92.2); MEAN PLATELET VOLUME 10.9 fl (9.4-12.3); MONOCYTES ABSOLUTE AUTO 1.38 K/mm3 (0.30-0.82); MONOCYTES PERCENT AUTO 9.3 % (5.3-12.2); NEUTROPHILS ABSOLUTE AUTO 11.13 K/mm3 (1.78-5.38); NEUTROPHILS PERCENT AUTO 75.5 % (34.0-67.9); PLATELET COUNT,PLT 190 K/mm3 (163-337); RED BLOOD CELL COUNT 5.67 M/mm3 (4.63-6.08); WHITE BLOOD CELL COUNT,WBC 14.76 K/mm3 (4.23-9.07)
[2023-04-22] MEDS ORDERED: Ondansetron 4 MG/2 ML SDV IVPUSH ONE (19:22)
[2023-04-22] MEDS ORDERED: Morphine 4 MG/ML Syringe IVPUSH ONE (19:22)
[2023-04-22 19:45] LABS: A/G RATIO 0.8 (1-2); ALBUMIN 3.8 g/dl (3.4-5.0); ANION GAP 14.9 (5-15); BILIRUBIN TOTAL 0.7 mg/dL (0.2-1.0); BUN/CREATININE RATIO 10.9 (14-18); CREATININE 1.1 mg/dL (0.7-1.3); EST CRCL DRUG DOSING (CG) 57.15 mL/min; INR 1.04; MAGNESIUM 2.1 mg/dL (1.8-2.4); POTASSIUM,K 3.9 mEq/L (3.5-5.1); PROTEIN TOTAL,TP 8.5 g/dl (6.4-8.2); PROTHROMBIN TIME 11.1 SECONDS (9.7-12.0)
[2023-04-22] MEDS ORDERED: Heparin Sodium 5,000 Units/ML Vial IVPUSH ONE (19:46)
[2023-04-22] MEDS ORDERED: Heparin Sodium/D5W 25,000 UNITS/500 ML BAG IV SCH (20:00)
== END 2023-04-22 20:23 ==
LOC: JD.ED 18:49
DX: I21.4 Non-ST elevation (NSTEMI) myocardial infarction (principal); I48.91 Unspecified atrial fibrillation; I10 Essential (primary) hypertension; I25.10 Atherosclerotic heart disease of native coronary artery without angina pectoris; E78.00 Pure hypercholesterolemia, unspecified; J44.9 Chronic obstructive pulmonary disease, unspecified; K21.9 Gastro-esophageal reflux disease without esophagitis; M19.90 Unspecified osteoarthritis, unspecified site; E11.9 Type 2 diabetes mellitus without complications; E66.9 Obesity, unspecified; Z68.28 Body mass index [BMI] 28.0-28.9, adult; Z79.01 Long term (current) use of anticoagulants; Z79.4 Long term (current) use of insulin; Z79.899 Other long term (current) drug therapy
CPT/HCPCS: 36415; 71046; 73030; 80053; 83735; 83880; 84443; 84484; 85025; 85027; 85610; 85730; 93005; 96365; 96375; 99285; A9270; J1644; J2270; J2405; J3490; 93010